=== PATIENT | female | born 1970 | race Caucasian/White ===

== ENCOUNTER → 2018-05-31 | Outpatient (CLI) | payer OTHER | END | disposition home or self-care (01) | LOC: CPPFTMAIN 11:46 | PROVIDERS: ATTEND Family Medicine | DX: R94.2 Abnormal results of pulmonary function studies (principal); R06.02 Shortness of breath | CPT/HCPCS: 94060; 94726; 94729 ==

== ENCOUNTER → 2018-06-23 | Outpatient (CLI) | payer OTHER ==
--- NOTE | 2018-06-23 13:08 | CT ---
EXAMINATION TYPE: CT angio chest DATE OF EXAM: 06/23/2018 COMPARISON: 05/26/2015 HISTORY: 48-year-old female Shortness of breath, cough, bringing up phlegm TECHNIQUE: Contiguous axial scanning of the chest performed with IV Contrast, patient injected with 1 00 mL of Isovue 370. Coronal/sagittal MIP reconstructions performed. CT DLP: 445 mGycm Automated exposure control for dose reduction was used. FINDINGS: Heart normal size without pericardial effusion. Aortic root is ectatic at 3.6 cm. Conventional arch vessel branching anatomy. No thoracic lymphadenopathy. Satisfactory opacification of the pulmonary to systemic without evidence for pulmonary embolus. Mild emphysematous changes noted with minimal biapical pleural-parenchymal scarring. No consolidation or pleural effusion. Bands of atelectasis in the lower lungs. This has a more nodular configuration along the posterior medial left lung base measuring 1.5 cm. Nodular atelectasis is favored and can be reassessed in 3 months. A round, well-defined hypodense lesion lateral aspect of the spleen measures 1.2 cm, too small for ac curate characterization and while new from 2014, probably still represents a cyst. Slight nodular thickening of the left adrenal gland measures 1.1 cm and may be new. Bones: No osseous destructive process. IMPRESSION: 1. NO EVIDENCE FOR PULMONARY EMBOLUS. 2. COPD WITH MILD EMPHYSEMA. 3. BANDS OF ATELECTASIS OR SCARRING AT THE LUNG BASES. THE BAND ALONG THE POSTEROMEDIAL LEFT BASE MALINA WS 1.5 CM OF NODULAR THICKENING FAVORED TO REPRESENT NODULAR ATELECTASIS. RECOMMEND THREE-MONTH FOLLO W-UP TO EXCLUDE UNDERLYING NODULE. 3. A 1.2 CM HYPODENSE LESION WITHIN THE SPLEEN WAS NOT SEEN IN 2014 BUT STILL LIKELY REPRESENTS A CYS T. THERE IS ALSO NEW 1.1 CM NODULARITY IN THE LEFT ADRENAL GLAND. BOTH OF THESE FINDINGS CAN ALSO BE REASSESSED AT THE PATIENT'S CHEST CT FOLLOW-UP.
== END | disposition home or self-care (01) ==
LOC: RADCTMAIN 12:13
PROVIDERS: ATTEND Internal Medicine Critical Care Medicine
DX: J44.9 Chronic obstructive pulmonary disease, unspecified (principal); R91.1 Solitary pulmonary nodule; Z88.5 Allergy status to narcotic agent
CPT/HCPCS: 71275; Q9967

== ENCOUNTER → 2018-08-17 | Outpatient (CLI) | payer OTHER ==
--- NOTE | 2018-08-30 10:12 | MM ---
Reason for exam: additional evaluation requested from prior study. Last mammogram was performed 13 years and 5 months ago. History: Family history of breast cancer. Physical Findings: Nurse Summary:1cm nodule in the right breast at 12 o'clock, 10/ 11 o'clock and a 1cm nodule in the left breast at 12 o'clock (nurse kp). MG Diagnostic Mammo w CAD MAX Bilateral CC and MLO view(s) were taken. Prior study comparison: February 20, 2015, mammogram. September 06, 2014, mammogram. February 19, 2014, mammogram. March 18, 2005, bilateral diagnostic mammogram. The breast tissue is extremely dense which could obscure a lesion on mammography. Finding: There are intermediate concern, suspicious punctate, grouped/clustered calcifications in the upper outer quadrant, middle position of the right breast 3cm from the nipple. These are in region on palpable. There is no discrete abnormality at BB's, grouped calcifications are in the general area. New finding since February 20, 2015. ASSESSMENT: Incomplete: need additional imaging evaluation, BI-RAD 0 RECOMMENDATION: Special view mammogram of the right breast.
--- NOTE | 2018-08-30 10:15 | USB ---
Reason for exam: additional evaluation requested from prior study. History: Family history of breast cancer. US Breast BILAT Right complete breast ultrasound includes all four quadrants, the retroareolar region and axilla. Finding demonstrates a 0.6 x 0.4 x 0.5cm cystic cluster at 7 o'clock for which a short term follow up in 3 months is recommended, a 1.2 x 0.9 x 1.4cm cystic lesion at 10 o'clock that correlates to palpable and a 1.2 x 0.6 x 0.8cm cystic lesion at 10 o'clock. Left complete breast ultrasound includes all four quadrants, the retroareolar region and axilla. Finding demonstrates a 1.5 x 0.8 x 1.2cm cystic lesion at 12 o'clock that correlates with palpable and a 0.9 x 0.8 x 0.9cm cystic cluster at 5 o'clock for which a short term follow up in 3 months is recommended. These results were verbally communicated with the patient and result sheet given to the patient on 08/17/18. ASSESSMENT: Probably benign, BI-RAD 3 RECOMMENDATION: Ultrasound of both breasts in 3 months.
== END | disposition home or self-care (01) ==
LOC: RADMAMWWP 12:58
PROVIDERS: ATTEND Family Medicine
DX: N63.11 Unspecified lump in the right breast, upper outer quadrant (principal); N63.21 Unspecified lump in the left breast, upper outer quadrant
CPT/HCPCS: 77066

== ENCOUNTER → 2018-09-26 | Outpatient (CLI) | payer OTHER ==
--- NOTE | 2018-09-27 08:30 | CT ---
EXAMINATION TYPE: CT chest w con DATE OF EXAM: 09/26/2018 COMPARISON: CT angiogram chest 06/23/2018 HISTORY: single pulmonary nodule CT DLP: 243.20 mGycm Automated exposure control for dose reduction was used. CONTRAST: CT scan of the chest is performed with IV Contrast, patient injected with 100 mL of Isovue 300. FINDINGS: LUNGS: The lungs are grossly clear, there is no concerning parenchymal mass or nodule identified. [place] parenchymal scar left lung base posteriorly. There is no pleural effusion or pneumothorax seen. The tracheobronchial tree is patent. MEDIASTINUM: There are no greater than 1 cm hilar or mediastinal lymph nodes. No pericardial effusi on is seen. Thoracic aorta is of normal caliber. The heart is not enlarged. UPPER ABDOMEN: Right adrenal glandular thickening is noted. OTHER: No additional significant abnormality is seen. IMPRESSION: 1. No evidence for concerning pulmonary nodule or mass. Linear parenchymal scar posteriorly left lung base. No focal consolidation identified. 2. Right adrenal glandular hyperplasia.
== END | disposition home or self-care (01) ==
LOC: RADCTMAIN 15:29
PROVIDERS: ATTEND Nurse Practitioner Family
DX: J98.4 Other disorders of lung (principal); E27.8 Other specified disorders of adrenal gland
CPT/HCPCS: 71260; Q9967

== ENCOUNTER → 2018-12-08 | Outpatient (CLI) | payer OTHER ==
--- NOTE | 2018-12-09 08:50 | MM ---
Reason for exam: follow-up at short interval from prior study. Last mammogram was performed 4 months ago. History: Family history of breast cancer in sister at age 48. Physical Findings: Nurse Summary: 0.5-1.5cm nodules throughout right and left breast (nurse kp). MG Work Up Mamm w CAD RT CC and MLO view(s) were taken of the right breast. Prior study comparison: August 17, 2018, bilateral MG diagnostic mammo w CAD MAX. February 20, 2015, mammogram. The breast tissue is extremely dense which could obscure a lesion on mammography. There are benign appearing scattered right calcifications most of which layer and are consistent with milk of calcium. There is also a 3mm group of lower outer quadrant calcifications at middle depth, questionably present on the prior exam of 2014. These are rounded in morphology. 6 month follow up recommended for this group only. These results were verbally communicated with the patient and result sheet given to the patient on 12/08/18. ASSESSMENT: Probably benign, BI-RAD 3 RECOMMENDATION: Follow-up diagnostic mammogram of the right breast in 6 months.
== END | disposition home or self-care (01) ==
LOC: RADMAMWWP 15:03
PROVIDERS: ATTEND Family Medicine
DX: R92.8 Other abnormal and inconclusive findings on diagnostic imaging of breast (principal)
CPT/HCPCS: 77065

== ENCOUNTER → 2018-12-08 | Outpatient (CLI) | payer OTHER ==
--- NOTE | 2018-12-09 08:54 | USB ---
Reason for exam: follow-up at short interval from prior study. History: Family history of breast cancer in sister at age 48. US Breast BILAT Right complete breast ultrasound includes all four quadrants, the retroareolar region and axilla. Finding demonstrates several cystic lesions measuring 0.8 x 0.4 x 0.9cm at 12 o'clock, 1.2 x 0.5 x 0.8cm at 12 o'clock, 0.5 x 0.3 x 0.7cm at 7 o'clock and 1.4 x 0.9 x 1.4cm at 11 o'clock. Left complete breast ultrasound includes all four quadrants, the retroareolar region and axilla. Finding demonstrates several cystic lesion measuring 1.0 x 0.4 x 0.6cm at 12 o'clock, 0.6 x 0.5 x 0.6cm at 4 o'clock, 0.7cm at 9 o'clock and 1.0 x 0.5 x 0.7cm at 11 o'clock. These results were verbally communicated with the patient and result sheet given to the patient on 12/08/18. ASSESSMENT: Benign, BI-RAD 2 RECOMMENDATION: Follow-up diagnostic mammogram of the right breast in 6 months.
== END | disposition home or self-care (01) ==
LOC: RADUSWWP 15:06
PROVIDERS: ATTEND Family Medicine
DX: R92.8 Other abnormal and inconclusive findings on diagnostic imaging of breast (principal)

== ENCOUNTER 2019-01-11 10:20 | Day surgery (SDC) | payer OTHER ==
[2019-01-10 11:11] VITALS: BMI 24.9
[~2019-01-11 10:20] MED LIST: LACTATED RINGERS 1,000 ML IV SCH; LIDOCAINE 1% 20 ML VIAL (10MG/ML) FOR IV START INTRADERMA PRN
[2019-01-11] MEDS ORDERED: LACTATED RINGERS 1,000 ML IV ONE ×2 (10:32)
[2019-01-11 10:36] VITALS: TEMP 97.8
[2019-01-11] MEDS ORDERED: LIDOCAINE 1% 20 ML VIAL (10MG/ML) FOR IV START INTRADERMA ONE (10:43)
[2019-01-11] MEDS ORDERED: LIDOCAINE 1% INJ 10MG/ML (20 ML MDV) ONE (10:50)
[2019-01-11] MEDS ORDERED: PROPOFOL 10 MG/ML 20 ML VIAL IV ONE (10:50)
--- NOTE | 2019-01-11 10:56 | P.GSHP ---
History of Present Illness H&P Date: 01/11/19 Chief Complaint: Colon cancer screening Patient is here today for colonoscopy. Mother with history of rectal cancer in her 50s. No bowel related complaints. No previous endoscopy. Past Medical History Past Medical History: Blood Disorder, COPD, CVA/TIA, Hypertension Additional Past Medical History / Comment(s): Factor 5 blood disorder. TIA X2. HAS OLD INJURIES FROM FALL OUT OF TRUCK BED, USES CANE. HAS CURRENT "CHEST COLD" SX, COUGH - INSTRUCTED PATIENT TO CALL AND NOTIFY DR HARDEN OF SX [place]. History of Any Multi-Drug Resistant Organisms: None Reported Past Surgical History: Tubal Ligation Additional Past Surgical History / Comment(s): ORIF RT LEG. D&C. EXC OVARIAN CYST. Past Anesthesia/Blood Transfusion Reactions: Postoperative Nausea & Vomiting (PONV) Smoking Status: Current every day smoker - Past Family History Mother Family Medical History: Cancer Additional Family Medical History / Comment(s): RECTAL CA Brother(s) Family Medical History: Deep Vein Thrombosis (DVT) Medications and Allergies Home Medications Medication Instructions Recorded Confirmed Type Metoprolol Succinate (ER) [Toprol 50 mg PO QAM 05/26/15 01/10/19 History Xl] Acetaminophen with Codeine 1 tab PO BID 09/30/18 01/10/19 History [Tylenol w/codeine #4] Albuterol Inhaler [Ventolin Hfa 1 - 2 puff INHALATION Q4HR PRN 09/30/18 01/10/19 History Inhaler] FLUoxetine HCL [PROzac] 40 mg PO QAM 09/30/18 01/10/19 History Fluticasone/Salmeterol 1 puff INHALATION BID 09/30/18 01/10/19 History [Fluticasone-Salmeterol 232-14] Montelukast Sodium [Singulair] 10 mg PO QAM 09/30/18 01/10/19 History Rivaroxaban [Xarelto] 20 mg PO DAILY 09/30/18 01/10/19 History Biotin 5,000 mcg PO DAILY 01/10/19 01/10/19 History Allergies Allergy/AdvReac Type Severity Reaction Status Date / Time hydrocodone AdvReac "OUT OF IT Verified 01/10/19 10:51 FOR SEVERAL DAYS" Surgical - Exam Vital Signs Temp Pulse Resp BP Pulse Ox 97.8 F 78 18 115/74 98 01/11/19 10:36 01/11/19 10:36 01/11/19 10:36 01/11/19 10:36 01/11/19 10:36 Physical exam: General: Well-developed, well-nourished HEENT: Normocephalic, sclerae nonicteric Abdomen: Nontender, nondistended Extremities: No edema Neuro: Alert and oriented Assessment and Plan (1) Colon cancer screening Narrative/Plan: Will proceed with colonoscopy Current Visit: Yes Status: Acute Code(s): Z12.11 - ENCOUNTER FOR SCREENING FOR MALIGNANT NEOPLASM OF COLON SNOMED Code(s): 329099872
--- NOTE | 2019-01-11 11:08 | P.PCN ---
Date of Procedure: 01/11/19 Procedure(s) Performed: PREOPERATIVE DIAGNOSIS: Colon cancer screening, family history POSTOPERATIVE DIAGNOSIS: Normal exam PROCEDURE: Colonoscopy ANESTHESIA: MAC SURGEON: Sheng Cha M.D. SPECIMENS: None ENDOSCOPIC PROCEDURE: The patient was placed on the endoscopy table in the left decubitus position. The Olympus colonoscope was inserted into the anus and passed under direct visualization to the base of the cecum. The appendiceal orifice was visualized. From that point the scope was slowly withdrawn inspecting all surfaces carefully. There were no neoplastic inflammatory or polypoid lesions throughout the cecum, ascending, transverse, descending, sigmoid and rectum. There was no visible diverticulosis noted. Digital rectal examination was normal. The patient was taken to the recovery room in stable condition per anesthesia guidelines. RECOMMENDATIONS: Resume diet. Follow-up colonoscopy 5 years.
[2019-01-11 11:47] VITALS: BP 119/82; PULSE 64; RESP 16
== END 2019-01-11 11:55 | disposition home or self-care (01) ==
LOC: ORWHC2ENDO 10:20
PROVIDERS: ATTEND Surgery
DX: Z12.11 Encounter for screening for malignant neoplasm of colon (principal); I10 Essential (primary) hypertension; F17.200 Nicotine dependence, unspecified, uncomplicated; J44.9 Chronic obstructive pulmonary disease, unspecified; D68.2 Hereditary deficiency of other clotting factors; Z86.73 Personal history of transient ischemic attack (TIA), and cerebral infarction without residual deficits; Z79.899 Other long term (current) drug therapy; Z79.01 Long term (current) use of anticoagulants; Z80.0 Family history of malignant neoplasm of digestive organs; Z88.5 Allergy status to narcotic agent; Z79.51 Long term (current) use of inhaled steroids
CPT/HCPCS: 81025; J2001; J2704; G0105

== ENCOUNTER 2019-03-07 13:37 | Emergency (ER) | payer OTHER ==
--- NOTE | 2019-03-07 15:16 | ED ---
Head Injury HPI - General Chief complaint: Head Injury Stated complaint: head injury, on blood thinners Time Seen by Provider: 03/07/19 14:39 Source: patient, RN notes reviewed Mode of arrival: ambulatory Limitations: no limitations - History of Present Illness Initial comments: 49-year-old female sent emergency Department with chief complaint of head i njury. Patient states she has done. States that her head. Patient states she's had a headache ever since her no loss conscious. Patient is on Xarelto chronically for clotting disorder. Patient called PCP who recommended come emergency for a CAT scan. Patient's had some nausea no blurred vision she does have some light sensitivity. No Focal weakness no dizziness no difficulty walking. - Related Data Home Medications Medication Instructions Recorded Confirmed Metoprolol Succinate (ER) [Toprol 50 mg PO QAM 05/26/15 03/07/19 Xl] Albuterol Inhaler [Ventolin Hfa 1 - 2 puff INHALATION RT-Q4H PRN 09/30/18 03/07/19 Inhaler] FLUoxetine HCL [PROzac] 40 mg PO QAM 09/30/18 03/07/19 Fluticasone/Salmeterol 1 puff INHALATION RT-BID 09/30/18 03/07/19 [Fluticasone-Salmeterol 232-14] Montelukast Sodium [Singulair] 10 mg PO QAM 09/30/18 03/07/19 Rivaroxaban [Xarelto] 20 mg PO DAILY 09/30/18 03/07/19 Allergies/Adverse reactions: Allergies Allergy/AdvReac Type Severity Reaction Status Date / Time hydrocodone AdvReac "OUT OF IT Verified 03/07/19 15:20 FOR SEVERAL DAYS" Review of Systems ROS Statement: Those systems with pertinent positive or pertinent negative responses have been documented in the HPI. ROS Other: All systems not noted in ROS Statement are negative. 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 History of Any Multi-Drug Resistant Organisms: None Reported Past Surgical History: Tubal Ligation Past Psychological History: No Psychological Hx Reported Smoking Status: Current every day smoker Past Alcohol Use History: Occasional Past Drug Use History: None Reported General Exam Limitations: no limitations General appearance: alert, in no apparent distress Head exam: Present: atraumatic, normocephalic, normal inspection Eye exam: Present: normal appearance, PERRL, EOMI. Absent: scleral icterus, conjunctival injection, periorbital swelling ENT exam: Present: normal exam, normal oropharynx, mucous membranes moist, TM's normal bilaterally Neck exam: Present: normal inspection, full ROM. Absent: tenderness, meningismus, lymphadenopathy Respiratory exam: Present: normal lung sounds bilaterally. Absent: respiratory distress, wheezes, rales, rhonchi, stridor Cardiovascular Exam: Present: regular rate, normal rhythm, normal heart sounds. Absent: systolic murmur, diastolic murmur, rubs, gallop, clicks GI/Abdominal exam: Present: soft, normal bowel sounds. Absent: distended, tenderness, guarding, rebound, rigid Neurological exam: Present: alert, oriented X3, CN II-XII intact, normal gait, reflexes normal. Absent: motor sensory deficit Skin exam: Present: warm, dry, intact, normal color. Absent: rash Course Vital Signs 03/07/19 13:54 Temperature 98.2 F Pulse Rate 84 Respiratory 16 Rate Blood Pressure 119/76 O2 Sat by Pulse 97 Oximetry Medical Decision Making - Medical Decision Making 41-year-old female presents emergency from chief complaint of head injury. Patient was sent here secondary to being on Xarelto CT is obtained no acute abnormality. We did discuss delayed bleed. Return parameters were discussed. Disposition Clinical Impression: Head injury Disposition: HOME SELF-CARE Condition: Stable Instructions (If sedation given, give patient instructions): Head Injury (ED) Additional Instructions: Please return to the Emergency Department if symptoms worsen or any other concerns. Is patient prescribed a controlled substance at d/c from ED?: No Referrals: Grceia Paulino III, MD [Primary Care Provider] - 1-2 days Time of Disposition: 15:50
--- NOTE | 2019-03-07 15:40 | CT ---
EXAMINATION TYPE: CT brain wo con DATE OF EXAM: 03/07/2019 COMPARISON: Prior head CT dated 05/26/2015 HISTORY: Left frontal head injury yesterday. Patient on blood thinners. CT DLP: 1052.4 mGycm. Automated Exposure Control for Dose Reduction was Utilized. PET CT performed u sing departmental protocol. TECHNIQUE: CT scan of the head is performed without contrast. FINDINGS: Hypodense area in the left frontal lobe is a stable finding and compatible with encephalom alacia possibly due to remote vascular insult. There is no acute intracranial hemorrhage, mass effect , or midline shift identified. The ventricles and sulci are within normal limits in size. The globe s are intact and the visualized sinuses are remarkable for inflammatory change in the sphenoid sinus on the left. No depressed skull fracture present. 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 IMPRESSION: No acute intracranial hemorrhage, mass effect, or midline shift is seen.
[2019-03-07 16:04] VITALS: BP 126/87; PULSE 80; RESP 18; TEMP 98
== END 2019-03-07 16:04 | disposition home or self-care (01) ==
LOC: EC 13:37
DX: S09.90XA Unspecified injury of head, initial encounter (principal); I10 Essential (primary) hypertension; D68.51 Activated protein C resistance; F17.200 Nicotine dependence, unspecified, uncomplicated; Z88.5 Allergy status to narcotic agent; Z79.01 Long term (current) use of anticoagulants; Z79.51 Long term (current) use of inhaled steroids; Z79.899 Other long term (current) drug therapy; Z86.73 Personal history of transient ischemic attack (TIA), and cerebral infarction without residual deficits; W22.8XXA Striking against or struck by other objects, initial encounter
CPT/HCPCS: 70450; 99283

== ENCOUNTER 2019-07-13 04:44 | Emergency (ER) | payer OTHER ==
[2019-07-13 04:50] VITALS: RESP 18
[2019-07-13] MEDS ORDERED: SODIUM CHLORIDE 0.9% 1,000 ML IV STA (04:58)
[2019-07-13 05:07] LABS: Basophils # (A) 0.1 k/uL (0-0.2); Basophils % (A) 1 %; Eosinophils # (A) 0.2 k/uL (0-0.7); Eosinophils % (A) 1 %; HCT 44.4 % (34.0-46.0); HGB 14.8 gm/dL (11.4-16.0); Lymphocytes # (A) 2.5 k/uL (1.0-4.8); Lymphocytes % (A) 24 %; MCH 32.2 pg (25.0-35.0); MCHC 33.2 g/dL (31.0-37.0); MCV 96.8 fL (80.0-100.0); Mean Platelet Volume 7.5; Monocytes # (A) 0.7 k/uL (0-1.0); Monocytes % (A) 6 %; Neutrophils # (A) 6.8 k/uL (1.3-7.7); Neutrophils % (A) 65 %; Platelet Count 343 k/uL (150-450); RBC 4.59 m/uL (3.80-5.40); WBC 10.5 k/uL (3.8-10.6)
--- NOTE | 2019-07-13 05:09 | ED ---
Neuro HPI - General Chief Complaint: Neuro Symptoms/Deficit Stated Complaint: stroke like symptoms Time Seen by Provider: 07/13/19 04:52 Source: family Limitations: physical limitation - History of Present Illness Is the patient presenting with stroke symptoms?: Yes -: unknown Initial Comments: 's patient is a 49-year-old woman brought to be evaluated for possible stroke. History is from patient's family members who state that she is not appear able to speak this morning. She had been speaking fine prior to going to bed. Family members also state that she seems to be having a hard time understanding when they communicate with her. Patient has history of previous TIA and previous stroke. No head injury. Patient not able to give much history due to what appears to be expressive aphasia. Location: speech History of same: No Place: home Severity: severe Improves With: none Worsens With: none Associated Symptoms: confusion - Related Data Home Medications: Home Medications Medication Instructions Recorded Confirmed Metoprolol Succinate (ER) [Toprol 50 mg PO QAM 05/26/15 03/07/19 Xl] Albuterol Inhaler [Ventolin Hfa 1 - 2 puff INHALATION RT-Q4H PRN 09/30/18 03/07/19 Inhaler] FLUoxetine HCL [PROzac] 40 mg PO QAM 09/30/18 03/07/19 Fluticasone/Salmeterol 1 puff INHALATION RT-BID 09/30/18 03/07/19 [Fluticasone-Salmeterol 232-14] Montelukast Sodium [Singulair] 10 mg PO QAM 09/30/18 03/07/19 Rivaroxaban [Xarelto] 20 mg PO DAILY 09/30/18 03/07/19 Allergies/Adverse Reactions: Allergies Allergy/AdvReac Type Severity Reaction Status Date / Time hydrocodone AdvReac "OUT OF IT Verified 07/13/19 04:50 FOR SEVERAL DAYS" Review of Systems ROS Statement: Those systems with pertinent positive or pertinent negative responses have been documented in the HPI. ROS Other: All systems not noted in ROS Statement are negative. Limitations: ROS unobtainable due to patients medical condition (This patient is currently) Respiratory: Denies: dyspnea Cardiovascular: Denies: chest pain Gastrointestinal: Denies: abdominal pain, vomiting Musculoskeletal: Denies: back pain Neurological: Denies: headache General Exam Limitations: physical limitation General appearance: alert, in no apparent distress Head exam: Present: atraumatic, normocephalic Eye exam: Present: normal appearance, PERRL, EOMI, nystagmus. Absent: scleral icterus, conjunctival injection ENT exam: Present: mucous membranes dry Neck exam: Present: normal inspection, full ROM. Absent: tenderness, meningismus Respiratory exam: Present: normal lung sounds bilaterally. Absent: respiratory distress, wheezes, rales, rhonchi, stridor Cardiovascular Exam: Present: normal rhythm, tachycardia, normal heart sounds. Absent: systolic murmur, diastolic murmur, rubs, gallop GI/Abdominal exam: Present: soft. Absent: distended, tenderness, guarding, rebound Extremities exam: Present: normal inspection, normal capillary refill. Absent: pedal edema, calf tenderness Back exam: Present: normal inspection. Absent: CVA tenderness (R), CVA tenderness (L) Neurological exam: Present: alert, CN II-XII intact. Absent: motor sensory deficit Expanded Neurological exam: Present: expressive aphasia, protecting the airway Patient oriented to: Present: person, place. Absent: time Speech: Present: expressive aphasia Cranial nerves: EOM's Intact: Normal, Gag Reflex: Normal, Tongue Deviation: Normal, Facial Sensation: Normal Motor strength exam: RUE: 5, LUE: 5, RLE: 5, LLE: 5 Eye Response: (4) open spontaneously Motor Response: (6) obeys commands Verbal Response: (4) confused conversation Skin exam: Present: warm, dry, intact, normal color. Absent: rash Stroke MDM - Lab Data Result diagrams: 07/13/19 04:58 07/13/19 04:58 Lab Results 07/13/19 07/13/19 07/13/19 Range/Units 04:58 04:58 04:58 WBC 10.5 (3.8-10.6) k/uL RBC 4.59 (3.80-5.40) m/uL Hgb 14.8 (11.4-16.0) gm/dL Hct 44.4 (34.0-46.0) % MCV 96.8 (80.0-100.0) fL MCH 32.2 (25.0-35.0) pg MCHC 33.2 (31.0-37.0) g/dL RDW 15.0 (11.5-15.5) % Plt Count 343 (150-450) k/uL Neutrophils % 65 % Lymphocytes % 24 % Monocytes % 6 % Eosinophils % 1 % Basophils % 1 % Neutrophils # 6.8 (1.3-7.7) k/uL Lymphocytes # 2.5 (1.0-4.8) k/uL Monocytes # 0.7 (0-1.0) k/uL Eosinophils # 0.2 (0-0.7) k/uL Basophils # 0.1 (0-0.2) k/uL PT 9.6 (9.0-12.0) sec INR 0.9 (<1.2) APTT 27.9 (22.0-30.0) sec Sodium 142 (137-145) mmol/L Potassium 4.0 (3.5-5.1) mmol/L Chloride 108 H (98-107) mmol/L Carbon Dioxide 20 L (22-30) mmol/L Anion Gap 14 mmol/L BUN 7 (7-17) mg/dL Creatinine 0.51 L (0.52-1.04) mg/dL Est GFR (CKD-EPI)AfAm >90 (>60 ml/min/1.73 sqM) Est GFR (CKD-EPI)NonAf >90 (>60 ml/min/1.73 sqM) Glucose 113 H (74-99) mg/dL Calcium 9.9 (8.4-10.2) mg/dL Total Bilirubin 0.2 (0.2-1.3) mg/dL AST 21 (14-36) U/L ALT 14 (9-52) U/L Alkaline Phosphatase 53 (38-126) U/L Troponin I (0.000-0.034) ng/mL Total Protein 8.1 (6.3-8.2) g/dL Albumin 4.8 (3.5-5.0) g/dL Urine Color Urine Appearance (Clear) Urine pH (5.0-8.0) Ur Specific [place] (1.001-1.035) Urine Protein (Negative) Urine Glucose (UA) (Negative) Urine Ketones (Negative) Urine Blood (Negative) Urine Nitrite (Negative) Urine Bilirubin (Negative) Urine Urobilinogen (<2.0) mg/dL Ur Leukocyte Esterase (Negative) Urine Opiates Screen (NotDetected) Ur Oxycodone Screen (NotDetected) Urine Methadone Screen (NotDetected) Ur Propoxyphene Screen (NotDetected) Ur Barbiturates Screen (NotDetected) U Tricyclic Antidepress (NotDetected) Ur Phencyclidine Scrn (NotDetected) Ur Amphetamines Screen (NotDetected) U Methamphetamines Scrn (NotDetected) U Benzodiazepines Scrn (NotDetected) Urine Cocaine Screen (NotDetected) U Marijuana (THC) Screen (NotDetected) Serum Alcohol 276 H* mg/dL 07/13/19 07/13/19 Range/Units 04:58 05:30 WBC (3.8-10.6) k/uL RBC (3.80-5.40) m/uL Hgb (11.4-16.0) gm/dL Hct (34.0-46.0) % MCV (80.0-100.0) fL MCH (25.0-35.0) pg MCHC (31.0-37.0) g/dL RDW (11.5-15.5) % Plt Count (150-450) k/uL Neutrophils % % Lymphocytes % % Monocytes % % Eosinophils % % Basophils % % Neutrophils # (1.3-7.7) k/uL Lymphocytes # (1.0-4.8) k/uL Monocytes # (0-1.0) k/uL Eosinophils # (0-0.7) k/uL Basophils # (0-0.2) k/uL PT (9.0-12.0) sec INR (<1.2) APTT (22.0-30.0) sec Sodium (137-145) mmol/L Potassium (3.5-5.1) mmol/L Chloride (98-107) mmol/L Carbon Dioxide (22-30) mmol/L Anion Gap mmol/L BUN (7-17) mg/dL Creatinine (0.52-1.04) mg/dL Est GFR (CKD-EPI)AfAm (>60 ml/min/1.73 sqM) Est GFR (CKD-EPI)NonAf (>60 ml/min/1.73 sqM) Glucose (74-99) mg/dL Calcium (8.4-10.2) mg/dL Total Bilirubin (0.2-1.3) mg/dL AST (14-36) U/L ALT (9-52) U/L Alkaline Phosphatase (38-126) U/L Troponin I <0.012 (0.000-0.034) ng/mL Total Protein (6.3-8.2) g/dL Albumin (3.5-5.0) g/dL Urine Color Colorless Urine Appearance Clear (Clear) Urine pH 6.5 (5.0-8.0) Ur Specific [place] 1.006 (1.001-1.035) Urine Protein Negative (Negative) Urine Glucose (UA) Negative (Negative) Urine Ketones Negative (Negative) Urine Blood Negative (Negative) Urine Nitrite Negative (Negative) Urine Bilirubin Negative (Negative) Urine Urobilinogen <2.0 (<2.0) mg/dL Ur Leukocyte Esterase Negative (Negative) Urine Opiates Screen Not Detected (NotDetected) Ur Oxycodone Screen Not Detected (NotDetected) Urine Methadone Screen Not Detected (NotDetected) Ur Propoxyphene Screen Not Detected (NotDetected) Ur Barbiturates Screen Not Detected (NotDetected) U Tricyclic Antidepress Not Detected (NotDetected) Ur Phencyclidine Scrn Not Detected (NotDetected) Ur Amphetamines Screen Not Detected (NotDetected) U Methamphetamines Scrn Not Detected (NotDetected) U Benzodiazepines Scrn Not Detected (NotDetected) Urine Cocaine Screen Not Detected (NotDetected) U Marijuana (THC) Screen Not Detected (NotDetected) Serum Alcohol mg/dL - Medical Decision Making Patient's 49-year-old woman with some aphasia found to have significantly elevated alcohol level. The patient workup negative for acute stroke. I was called by nursing staff while evaluating another patient and they stated the patient was wanting to leave [facility] [facility], and supported by family members. 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 History of Any Multi-Drug Resistant Organisms: None Reported Past Surgical History: Tubal Ligation Past Psychological History: No Psychological Hx Reported Smoking Status: Current every day smoker Past Alcohol Use History: Occasional Past Drug Use History: None Reported Course Vital Signs 07/13/19 07/13/19 04:48 06:30 Temperature 97.6 F 97.9 F Pulse Rate 105 H 68 Respiratory 18 18 Rate Blood Pressure 127/82 122/76 O2 Sat by Pulse 96 98 Oximetry Disposition Clinical Impression: Alcohol intoxication, Aphasia Disposition: HOME SELF-CARE Instructions (If sedation given, give patient instructions): Alcohol Intoxication (ED) Is patient prescribed a controlled substance at d/c from ED?: No Referrals: Grecia Paulino III, MD [Primary Care Provider] - 1-2 days
[2019-07-13 05:18] LABS: INR 0.9 (<1.2); Partial Thromboplastin Time 27.9 sec (22.0-30.0); Prothrombin Time 9.6 sec (9.0-12.0)
[2019-07-13 05:20] LABS: ALT 14 U/L (9-52); AST 21 U/L (14-36); African American GFR (CKD) >90 (>60 ml/min/1.73 sqM); Albumin 4.8 g/dL (3.5-5.0); Alkaline Phosphatase 53 U/L (38-126); Anion Gap 14 mmol/L; Blood Urea Nitrogen 7 mg/dL (7-17); Calcium 9.9 mg/dL (8.4-10.2); Carbon Dioxide 20 mmol/L (22-30); Chloride 108 mmol/L (98-107); Glucose 113 mg/dL (74-99); Sodium 142 mmol/L (137-145); Total Bilirubin 0.2 mg/dL (0.2-1.3); Total Protein 8.1 g/dL (6.3-8.2)
[2019-07-13 05:24] LABS: Alcohol 276 mg/dL
--- NOTE | 2019-07-13 05:31 | CT ---
EXAM: CT Head Without Intravenous Contrast CLINICAL HISTORY: Neuro Deficits TECHNIQUE: Axial computed tomography images of the head/brain without intravenous contrast. DLP is 1412.4 mGy-cm. This CT exam was performed using one or more of the following dose reduction techniques: automated exposure control, adjustment of the mA and/or kV according to patient size, and/or use of iterative reconstruction technique. COMPARISON: 03/07/2019. FINDINGS: Brain: Encephalomalacia involving the left frontal lobe, likely from prior infarct, as seen on prior study. There is no evidence of an acute transcortical infarct or acute intracranial hemorrhage. No significant white matter disease. Ventricles: Unremarkable. No ventriculomegaly. Bones/joints: Unremarkable. No acute fracture. Soft tissues: Unremarkable. Sinuses: Tiny air-fluid level seen within the right sphenoid sinus. Mastoid air cells: Unremarkable as visualized. No mastoid effusion. IMPRESSION: No evidence of acute intracranial pathology without significant interval change, as above.
--- NOTE | 2019-07-13 05:34 | CT ---
EXAM: CT Angiography Head With Intravenous Contrast CLINICAL HISTORY: ITS.REASON CT Reason: Neuro Deficits TECHNIQUE: Axial computed tomographic angiography images of the head with intravenous contrast. CTDI is 8 mGy and DLP is 293 mGy-cm. This CT exam was performed using one or more of the following dose reduction techniques: automated exposure control, adjustment of the mA and/or kV according to patient size, and/or use of iterative reconstruction technique. MIP reconstructed images were created and reviewed. COMPARISON: 07/13/19 CT head FINDINGS: Right internal carotid artery: Intracranial segment is patent with no significant stenosis. No aneurysm. Right anterior cerebral artery: No occlusion or significant stenosis. No aneurysm. Right middle cerebral artery: No occlusion or significant stenosis. No aneurysm. Right posterior cerebral artery: No occlusion or significant stenosis. No aneurysm. Right vertebral artery: Unremarkable. Left internal carotid artery: Intracranial segment is patent with no significant stenosis. No aneurysm. Left anterior cerebral artery: No occlusion or significant stenosis. No aneurysm. Left middle cerebral artery: No occlusion or significant stenosis. No aneurysm. Left posterior cerebral artery: No occlusion or significant stenosis. No aneurysm. Left vertebral artery: Unremarkable. Basilar artery: No occlusion or significant stenosis. No aneurysm. IMPRESSION: No significant stenosis. EXAM: CT Angiography Neck With Intravenous Contrast CLINICAL HISTORY: ITS.REASON CT Reason: Neuro Deficits TECHNIQUE: Axial computed tomographic angiography images of the neck with intravenous contrast. CTDI is 8 mGy and DLP is 293 mGy-cm. This CT exam was performed using one or more of the following dose reduction techniques: automated exposure control, adjustment of the mA and/or kV according to patient size, and/or use of iterative reconstruction technique. MIP reconstructed images were created and reviewed. COMPARISON: No relevant prior studies available. FINDINGS: VASCULATURE: Right common carotid artery: No significant stenosis. No dissection or occlusion. Right internal carotid artery: Extracranial segment is patent with no significant stenosis. No dissection or occlusion. Right vertebral artery: No significant stenosis. No dissection or occlusion. Left common carotid artery: No significant stenosis. No dissection or occlusion. Left internal carotid artery: Extracranial segment is patent with no significant stenosis. No dissection or occlusion. Left vertebral artery: No significant stenosis. No dissection or occlusion. Possible occlusion in the very distal vessels around the left frontal lobe infarct. NECK: Bones/joints: No acute fracture. No dislocation. Soft tissues: No mass. CAROTID STENOSIS REFERENCE USING NASCET CRITERIA: % ICA stenosis = (1 - narrowest ICA diameter/diameter of distal cervical ICA) x 100. Mild - <50% stenosis. Moderate - 50-69% stenosis. Severe - 70-94% stenosis. Near occlusion - 95-99% stenosis. Occluded - 100% stenosis. IMPRESSION: No significant stenosis major vessels. Possible occlusion in the very distal vessels around the left frontal lobe infarct.
--- NOTE | 2019-07-13 05:35 | XR ---
EXAM: XR Chest, 2 Views CLINICAL HISTORY: altered mental status TECHNIQUE: Frontal and lateral views of the chest. COMPARISON: 06/02/2016. FINDINGS: Lungs: Left basilar atelectasis and/or infiltrates, more conspicuous on this study than the prior. Pleural space: Unremarkable. No pneumothorax. Heart: The heart is at upper limits of normal/mildly enlarged, new since prior study. Mediastinum: Unremarkable. Bones/joints: Unremarkable. IMPRESSION: 1. The heart is at upper limits of normal/mildly enlarged, new since prior study. 2. Left basilar atelectasis and/or infiltrates, more conspicuous on this study than the prior.
[2019-07-13 06:29] LABS: Appearance,Urine Clear (Clear); Bilirubin,Urine Negative (Negative); Blood,Urine Negative (Negative); Color,Urine Colorless; Glucose,Urine (UA) Negative (Negative); Ketones,Urine Negative (Negative); Leukocyte Esterase,Urine Negative (Negative); Nitrite,Urine Negative (Negative); PH, Urine 6.5 (5.0-8.0); Protein,Urine Negative (Negative); Specific Gravity,Urine 1.006 (1.001-1.035); Urobilinogen,Urine <2.0 mg/dL (<2.0)
[2019-07-13 06:32] VITALS: BP 122/76; PULSE 68; TEMP 97.9
[2019-07-13 06:41] LABS: Amphetamine Screen,Urine Not Detected (NotDetected); Barbiturate Screen,Urine Not Detected (NotDetected); Benzodiazepines Screen,Urine Not Detected (NotDetected); Cocaine Screen,Urine Not Detected (NotDetected); Methadone Screen, Urine Not Detected (NotDetected); Opiate Screen,Urine Not Detected (NotDetected); Oxycodone Screen, Urine Not Detected (NotDetected); Phencyclidine Screen,Urine Not Detected (NotDetected); Tricyclic Antidepressant,Urine Not Detected (NotDetected); Urn Cannabinoid Scrn Not Detected (NotDetected)
== END 2019-07-13 06:33 | disposition home or self-care (01) ==
LOC: EC 04:44
DX: F10.129 Alcohol abuse with intoxication, unspecified (principal); R47.01 Aphasia; F17.200 Nicotine dependence, unspecified, uncomplicated; I10 Essential (primary) hypertension; Z79.01 Long term (current) use of anticoagulants; Z79.899 Other long term (current) drug therapy; Z88.5 Allergy status to narcotic agent; Z86.73 Personal history of transient ischemic attack (TIA), and cerebral infarction without residual deficits
CPT/HCPCS: 99285 ×2; 96360 ×2; 36415; 93005; 80053; 84484; 85025; 85610; 85730; 81003; 80306; 71046; 70496; 70450; 70498; G0480; Q9967; 80320

== ENCOUNTER 2019-11-07 22:10 | Inpatient (IN) | payer OTHER ==
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
[2019-11-07] MEDS ORDERED: NICOTINE 14MG/24HR PATCH TRANSDERM STA (23:15)
[2019-11-08 00:38] LABS: Amphetamine Screen,Urine Not Detected (NotDetected); Barbiturate Screen,Urine Not Detected (NotDetected); Benzodiazepines Screen,Urine Not Detected (NotDetected); Cocaine Screen,Urine Not Detected (NotDetected); Methadone Screen, Urine Not Detected (NotDetected); Opiate Screen,Urine Not Detected (NotDetected); Oxycodone Screen, Urine Not Detected (NotDetected); Phencyclidine Screen,Urine Not Detected (NotDetected); Tricyclic Antidepressant,Urine Not Detected (NotDetected); Urn Cannabinoid Scrn Not Detected (NotDetected)
[2019-11-08] MEDS ORDERED: ZIPRASIDONE 20 MG VIAL IM PRN (07:25)
[2019-11-08] MEDS ORDERED: MAG HYDROX/AL HYDROX/SIMETH 30 ML CUP PO PRN (07:25)
[2019-11-08] MEDS ORDERED: LORazepam 1 MG TAB PO PRN ×2 (07:25→10:13)
[2019-11-08] MEDS ORDERED: MAGNESIUM HYDROXIDE 2,400 MG/10 ML CUP PO PRN (07:25)
[2019-11-08] MEDS: MONTELUKAST 10 MG TAB PO SCH ×2 (09:27→21:44)
[2019-11-08] MEDS: METOPROLOL SUCCINATE (ER) 50 MG TAB.ER.24H PO SCH (09:30)
[2019-11-08] MEDS: GABAPENTIN 300 MG CAP PO SCH ×3 (09:30→21:44)
[2019-11-08] MEDS: FLUoxetine HCL 20 MG CAP PO SCH (09:30)
[2019-11-08] MEDS: NICOTINE 14MG/24HR PATCH TRANSDERM SCH (09:30)
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
--- NOTE | 2019-11-08 14:18 | P.CONS ---
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 Anxiety and depression. She was admitted to the mental health unit with a diagnosis of severe depression with psychotic symptoms. Also she states she drinks alcohol about 10 beers and 2 cups of whisky about 3-4 days a week. Medical consult has been called for medical management. However patient denies symptoms, she denies headache, no chest pain, no dyspnea, no abdominal pain, nausea vomiting, no change in urine or bowel habits, no fever. She is walking with no difficulty by herself. Vitals are stable and labs reviewed. test was offered but she declined, stating that she has tubal ligation. Risks are explained for her and she verbalized understanding Review of Systems CONSTITUTIONAL: No fever, no malaise, no fatigue. HEENT: No recent visual problems or hearing problems. Denied any sore throat. CARDIOVASCULAR: No orthopnea, PND, no palpitations, no syncope. PULMONARY: No shortness of breath, no cough, no hemoptysis. GASTROINTESTINAL: No diarrhea, no nausea, no vomiting, no abdominal pain. Normoactive bowel sounds. NEUROLOGICAL: No headaches, no weakness, no numbness. HEMATOLOGICAL: Denies any bleeding or petechiae. GENITOURINARY: Denies any burning micturition, frequency, or urgency. MUSCULOSKELETAL/RHEUMATOLOGICAL: Denies any joint pain, swelling, or any muscle pain. ENDOCRINE: Denies any polyuria or polydipsia. Past Medical History Past Medical History: Blood Disorder, COPD, CVA/TIA, Hypertension Additional Past Medical History / Comment(s): factor 5 blood disorder History of Any Multi-Drug Resistant Organisms: None Reported Past Surgical History: Section, Orthopedic Surgery, Tubal Ligation Past Anesthesia/Blood Transfusion Reactions: Postoperative Nausea & Vomiting (PONV) Additional Past Anesthesia/Blood Transfusion Reaction / Comm: Pt has a long period of time coming out of it and "freaks" out. Past Psychological History: Anxiety, Depression, PTSD Smoking Status: Current every day smoker Past Alcohol Use History: Heavy Past Drug Use History: None Reported Additional Drug Use History / Comment(s): Family hx of abuse with alcohol. Medications and Allergies Home Medications Medication Instructions Recorded Confirmed Type Metoprolol Succinate (ER) [Toprol 50 mg PO DAILY 05/26/15 11/07/19 History Xl] Albuterol Inhaler [Ventolin Hfa 2 puff INHALATION RT-Q4H PRN 09/30/18 11/07/19 History Inhaler] FLUoxetine HCL [PROzac] 40 mg PO DAILY 09/30/18 11/07/19 History Fluticasone/Salmeterol 1 puff INHALATION RT-BID 09/30/18 11/07/19 History [Fluticasone-Salmeterol 232-14] Montelukast Sodium [Singulair] 10 mg PO DAILY 09/30/18 11/07/19 History Rivaroxaban [Xarelto] 20 mg PO DAILY 09/30/18 11/07/19 History Gabapentin [Neurontin] 300 mg PO TID 11/07/19 11/07/19 History Latanoprost/Pf [Latanoprost 0.005% 1 drop BOTH EYES DAILY 11/07/19 11/07/19 History Eye Drop] traMADol HCL 50 - 100 mg PO TID PRN 11/07/19 11/07/19 History Allergies Allergy/AdvReac Type Severity Reaction Status Date / Time hydrocodone Allergy RASH/"OUT Verified 11/07/19 23:16 OF IT FOR SEVERAL DAYS" Physical Exam Vitals: Vital Signs Temp Pulse Pulse Resp BP BP Pulse Ox 11/08/19 09:30 87 18 132/78 11/08/19 08:30 97.3 F L 83 16 140/77 11/07/19 22:11 98.2 F 82 18 147/87 97 Intake and Output 11/07/19 11/08/19 11/08/19 22:59 06:59 14:59 Other: Weight 65.771 kg 65.771 kg GENERAL: The patient is alert and oriented x3, not in any acute distress. Well developed, well nourished. HEENT: Pupils are round and equally reacting to light. EOMI. No scleral icterus. No conjunctival pallor. Normocephalic, atraumatic. No pharyngeal erythema. No thyromegaly. CARDIOVASCULAR: S1 and S2 present. No murmurs, rubs, or gallops. PULMONARY: Chest is clear to auscultation, no wheezing or crackles. ABDOMEN: Soft, nontender, nondistended, normoactive bowel sounds. No palpable organomegaly. MUSCULOSKELETAL: No joint swelling or deformity. EXTREMITIES: No cyanosis, clubbing, or pedal edema. NEUROLOGICAL: Gross neurological examination did not reveal any focal deficits. SKIN: No rashes. 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 Patient is on xarelto hypertension Nicotine dependence Alcohol abuse, at-risk of withdrawal Severe depression with psychotic symptoms, management as per psychiatry primary team Plan: This is a pleasant 49 years old female who presents with signs symptoms of depression. She also nicotine dependence and alcohol abuse. Management of her mental illnesses as per primary team. Continue with nicotine patch and patient is counseled and she agrees to quit. Prescribed Ativan as needed for possible alcohol withdrawal and thiamine vitamins. Continue with xarelto Labs and medication were reviewed.. Continue same treatment. Continue with symptomatic treatment. Resume home medication. Monitor lytes and vitals. DVT and GI prophylaxis. Further recommendations of the clinical course of the patient Patient is low risk for DVT and she is mobile, no need for heparin, no need for GI prophylaxis Thank you for consulting us, we will see the patient on as needed basis. Please feel free to contact us for any further question or clarification
[2019-11-08] MEDS: RIVAROXABAN 20 MG TAB PO SCH (16:42)
[2019-11-08] MEDS ORDERED: ALBUTEROL INHALER 60 PUFF/8 GM INHALER INHALATION PRN (22:01)
[2019-11-09 08:59] LABS: Basophils % (A) 0 %; Eosinophils # (A) 0.1 k/uL (0-0.7); Eosinophils % (A) 1 %; HCT 42.7 % (34.0-46.0); HGB 14.3 gm/dL (11.4-16.0); Lymphocytes # (A) 2.1 k/uL (1.0-4.8); Lymphocytes % (A) 24 %; MCH 32.9 pg (25.0-35.0); MCHC 33.6 g/dL (31.0-37.0); Mean Platelet Volume 9.2; Monocytes # (A) 0.7 k/uL (0-1.0); Monocytes % (A) 8 %; Neutrophils # (A) 5.8 k/uL (1.3-7.7); Neutrophils % (A) 66 %; Platelet Count 244 k/uL (150-450); RBC 4.36 m/uL (3.80-5.40); RDW 13.3 % (11.5-15.5); WBC 8.8 k/uL (3.8-10.6)
[2019-11-09 09:20] LABS: ALT 12 U/L (4-34); AST 24 U/L (14-36); African American GFR (CKD) >90 (>60 ml/min/1.73 sqM); Albumin 4.3 g/dL (3.5-5.0); Alkaline Phosphatase 46 U/L (38-126); Anion Gap 9 mmol/L; Bilirubin, Delta 0.3 mg/dL (0.0-0.2); Bilirubin,Unconjugated 0.4 mg/dL (0.0-1.1); Blood Urea Nitrogen 11 mg/dL (7-17); Calcium 9.6 mg/dL (8.4-10.2); Carbon Dioxide 25 mmol/L (22-30); Chloride 105 mmol/L (98-107); Cholesterol 196 mg/dL (<200); Glucose 95 mg/dL (74-99); HDL Cholesterol 63 mg/dL (40-60); LDL Cholesterol,Calculated 100 mg/dL (0-99); Non-African American GFR(CKD) >90 (>60 ml/min/1.73 sqM); Potassium 4.1 mmol/L (3.5-5.1); Sodium 139 mmol/L (137-145); Total Bilirubin 0.7 mg/dL (0.2-1.3); Total Protein 7.2 g/dL (6.3-8.2); Triglycerides 164 mg/dL (<150)
[2019-11-09] MEDS: GABAPENTIN 300 MG CAP PO SCH ×3 (09:22→21:30)
[2019-11-09] MEDS: METOPROLOL SUCCINATE (ER) 50 MG TAB.ER.24H PO SCH (09:22)
[2019-11-09] MEDS: NICOTINE 14MG/24HR PATCH TRANSDERM SCH (09:22)
[2019-11-09] MEDS: FLUoxetine HCL 20 MG CAP PO SCH (09:22)
[2019-11-09] MEDS: LATANOPROST 0.005% OPHTH DROPS 2.5 ML BTL BOTH EYES SCH (09:23)
[2019-11-09] MEDS: ALBUTEROL INHALER 60 PUFF/8 GM INHALER INHALATION PRN (09:25)
--- NOTE | 2019-11-09 10:12 | P.PN ---
Progress Note - Text Interval history: The patient is found in group she follows me to an interview room. She indicates that her mood in terms of depression is improved. She is struggling with sleep and staff reported she slept 5 hours. We discussed using trazodone and she is agreeable. We discussed titrating her Prozac further and she is agreeable. Anxiety symptoms persist. She has been attending groups. Appetite stable. She states that she had a visit from her and 2 daughters last evening which was helpful. She still does not want inpatient chemical dependency treatment but is willing to participate in AA once discharged. Mental status exam: The patient is alert she is dressed in hospital gowns and her own pants. Hygiene grooming adequate. Eye contact is appropriate speech is fluent and spontaneous nonpressured. She reports that her mood is down but better than yesterday. She still has some hopeless thoughts but feels safe here in the hospital. She is reporting no acute suicidal thoughts here on the mental health unit. She is reporting no homicidal ideation intent or plan. She is reporting no auditory or visual hallucinations or any specific delusions. She demonstrates no tangential thinking loose associations or flight of ideas. Affect is constricted today no tearfulness. She demonstrates no verbal or physi lisseth aggressiveness. She remains oriented to person place and date. Plan: The patient will continue on the Prozac we will titrate the dose to 60 mg daily we will add trazodone 50 mg at bedtime for sleep. Vital signs reviewed her CIWA scores are quite low. We will monitor her for safety and encourage full participation in the milieu. She requires continued psychiatric hospitalization to stabilize her mood. We will continue discussing inpatient chemical dependency treatment as an option upon discharge.
[2019-11-09] MEDS: RIVAROXABAN 20 MG TAB PO SCH (16:46)
[2019-11-09 18:32] LABS: Hemoglobin A1C 5.6 % (4.0-6.0)
[2019-11-09 19:40] LABS: Appearance,Urine Clear (Clear); Bilirubin,Urine Negative (Negative); Blood,Urine Trace (Negative); Color,Urine Light Yellow; Glucose,Urine (UA) Negative (Negative); Ketones,Urine Negative (Negative); Leukocyte Esterase,Urine Negative (Negative); Nitrite,Urine Negative (Negative); Protein,Urine Negative (Negative); RBC,Urine 1 /hpf (0-5); Specific Gravity,Urine 1.003 (1.001-1.035); Urobilinogen,Urine <2.0 mg/dL (<2.0); WBC,Urine <1 /hpf (0-5)
[2019-11-09] MEDS ORDERED: traZODone HCL 50 MG TAB PO SCH (21:00)
[2019-11-09] MEDS: MONTELUKAST 10 MG TAB PO SCH (21:30)
[2019-11-10] MEDS: LATANOPROST 0.005% OPHTH DROPS 2.5 ML BTL BOTH EYES SCH (08:51)
[2019-11-10] MEDS: NICOTINE 14MG/24HR PATCH TRANSDERM SCH (08:51)
[2019-11-10] MEDS: FLUoxetine HCL 20 MG CAP PO SCH (08:51)
[2019-11-10] MEDS: GABAPENTIN 300 MG CAP PO SCH ×3 (08:51→22:03)
[2019-11-10] MEDS: METOPROLOL SUCCINATE (ER) 50 MG TAB.ER.24H PO SCH (08:52)
--- NOTE | 2019-11-10 09:18 | P.PN ---
Progress Note - Text Interval history: The patient is found in the hallway she follows me to an interview room. She indicates her mood is blah. She still is feeling depressed and anxious. She indicates that yesterday there were times when her mood was a little better. She continues to have some difficulty sleeping she is napping during the day she is encouraged to not nap during the day. She has been attending some groups. She continues to speak to family members over the phone and overall finds that supportive. She indicates her has decided to discontinue alcohol use as well in supporting her sobriety. We reviewed her psychotropic medications. We discussed titrating the trazodone further. We discussed some coping skill strategies. Mental status exam: The patient is alert hygiene is adequate she has a disheveled appearance she is dressed in a hospital gown. Eye contact is appropriate she's cooperative and pleasant throughout the interaction. She describes some continued feelings of depression and anxiety. She does shake her leg throughout the session. She reports feeling safe in the hospital she is reporting no homicidal ideation intent or plan. She still has some hopelessness thinking but feels her mood is better than when she first came in the hospital. She is reporting no auditory or visual hallucinations or any specific delusions. There is no observed evidence of psychosis. She demonstrates no tangential thinking loose associations or flight of ideas. She does not appear hypomanic or manic. Insight and judgment slowly improving. Plan: The patient will continue on her current psychotropic medications. I will titrate the trazodone 100 mg at bedtime. She is encouraged to fully participate in the milieu. Vital signs reviewed. She is demonstrating no evidence of withdrawal from alcohol. She requires continued psychiatric hospitalization to further stabilize her mood. She anticipates her will visit over the weekend we will contact him afterwards to see how she is approximating her baseline function.
[2019-11-10] MEDS: ALBUTEROL INHALER 60 PUFF/8 GM INHALER INHALATION PRN (17:56)
[2019-11-10] MEDS: RIVAROXABAN 20 MG TAB PO SCH (17:56)
[2019-11-10] MEDS: MONTELUKAST 10 MG TAB PO SCH (22:03)
[2019-11-10] MEDS: traZODone HCL 100 MG TAB PO SCH (22:03)
[2019-11-11] MEDS: NICOTINE 14MG/24HR PATCH TRANSDERM SCH (08:48)
[2019-11-11] MEDS: LATANOPROST 0.005% OPHTH DROPS 2.5 ML BTL BOTH EYES SCH (08:48)
[2019-11-11] MEDS: FLUoxetine HCL 20 MG CAP PO SCH (08:48)
[2019-11-11] MEDS: GABAPENTIN 300 MG CAP PO SCH ×3 (08:48→21:49)
[2019-11-11] MEDS: METOPROLOL SUCCINATE (ER) 50 MG TAB.ER.24H PO SCH (08:49)
[2019-11-11] MEDS: ACETAMINOPHEN TAB 325 MG TAB PO PRN (08:49)
[2019-11-11] MEDS: RIVAROXABAN 20 MG TAB PO SCH (16:07)
--- NOTE | 2019-11-11 20:59 | P.PN ---
Progress Note - Text Progress Note Date: 11/11/19 Interval history: Patient is seen in cross coverage today. She says she slept about 4 hours last night. She does not verbalize any adverse psychotropic medication side effects she does describe that her mood is feeling better. She has been attending groups and has been reading information regarding AA. Mental status exam: She is alert and cooperative with the interview. Her speech is fluent, not rapid or pressured. Thought processes organized. Her mood is improved. She does not verbalize any thoughts of harm to self or others. She does not show evidence of psychosis or agitation. Plan: Patient will be maintained on current psychotropic medication regimen. Continue to monitor for any medication side effects and monitor her ongoing response to treatment.
[2019-11-11] MEDS: MONTELUKAST 10 MG TAB PO SCH (21:49)
[2019-11-11] MEDS: traZODone HCL 100 MG TAB PO SCH (21:49)
[2019-11-12] MEDS: FLUoxetine HCL 20 MG CAP PO SCH (08:57)
[2019-11-12] MEDS: NICOTINE 14MG/24HR PATCH TRANSDERM SCH (08:57)
[2019-11-12] MEDS: LATANOPROST 0.005% OPHTH DROPS 2.5 ML BTL BOTH EYES SCH (08:57)
[2019-11-12] MEDS: GABAPENTIN 300 MG CAP PO SCH ×3 (08:57→21:17)
[2019-11-12] MEDS: ALBUTEROL INHALER 60 PUFF/8 GM INHALER INHALATION PRN ×2 (08:58→21:17)
[2019-11-12] MEDS: METOPROLOL SUCCINATE (ER) 50 MG TAB.ER.24H PO SCH (08:58)
[2019-11-12] MEDS: ACETAMINOPHEN TAB 325 MG TAB PO PRN ×2 (12:36→18:11)
--- NOTE | 2019-11-12 15:21 | P.PN ---
Progress Note - Text Progress Note Date: 11/12/19 Interval history: Patient is seen in [facility] again today. She says she slept only about 4 hours last night. She says today is a rough day for her pain and that's having an impact on her mood being kind of irritable and down. Mental status exam: She is alert and cooperative with the interview. Her speech is fluent, not rapid or pressured. Her thought processes are organized. She denies any thoughts of harm to self or others. Her mood she describes is kind of irritable and down today. She does not show any evidence of psychosis or agitation. Plan: Patient will be maintained on current psychotropic medication regimen. Continue to monitor any medication side effects and monitor her ongoing response to treatment.
[2019-11-12] MEDS: RIVAROXABAN 20 MG TAB PO SCH (17:43)
[2019-11-12] MEDS: MONTELUKAST 10 MG TAB PO SCH (21:17)
[2019-11-12] MEDS: traZODone HCL 100 MG TAB PO SCH (21:17)
[2019-11-13] MEDS: NICOTINE 14MG/24HR PATCH TRANSDERM SCH (08:46)
[2019-11-13] MEDS: FLUoxetine HCL 20 MG CAP PO SCH (08:47)
[2019-11-13] MEDS: METOPROLOL SUCCINATE (ER) 50 MG TAB.ER.24H PO SCH (08:47)
[2019-11-13] MEDS: GABAPENTIN 300 MG CAP PO SCH ×3 (08:47→22:28)
[2019-11-13] MEDS: LATANOPROST 0.005% OPHTH DROPS 2.5 ML BTL BOTH EYES SCH (08:48)
[2019-11-13] MEDS: ACETAMINOPHEN TAB 325 MG TAB PO PRN (08:50)
--- NOTE | 2019-11-13 10:10 | P.PN ---
Progress Note - Text Interval history: The patient is found in group she follows me to an interview room. She reports she is experiencing more pain. She is asking to be able to use tramadol once a day as needed. She indicates this is prescribed to her by her pain physician. She has been speaking with family via phone. She indicates her mood is improving. We discussed her psychotropic medications. We spent several minutes discussing strategies for her remaining sober upon discharge. She continues to feel that she does not want to attend inpatient chemical dependency treatment. She is willing to go to a meetings establish with a sponsor. She has been attending groups. She has been eating she slept approximately 6 or 7 hours last evening. Mental status exam: The patient is alert she is dressed in her own clothing hygiene grooming adequate. Speech is fluent spontaneous nonpressured. She reports no acute suicidal ideation intent or plan she reports no thoughts of harming others. She is reporting no auditory or visual hallucinations or any specific delusions. There is no observed evidence of psychosis. She demonstrates no tangential thinking loose associations or flight of ideas. She does not appear hypomanic or manic. She demonstrates no verbal or physical aggressiveness. She demonstrates future oriented thinking. She remains oriented to person place and date. Plan: The patient's will continue on her current psychotropic medication. We will monitor for safety. She demonstrates no evidence of any alcohol withdrawal. Social work will be asked to arrange a support meeting involving her . We will consider discharging her tomorrow if clinically stable.
[2019-11-13] MEDS: traMADol 50 MG TAB PO PRN (10:25)
[2019-11-13] MEDS: RIVAROXABAN 20 MG TAB PO SCH (17:47)
[2019-11-13] MEDS: MONTELUKAST 10 MG TAB PO SCH (22:28)
[2019-11-13] MEDS: traZODone HCL 100 MG TAB PO SCH (22:28)
[2019-11-14 07:06] VITALS: BP 97/55; PULSE 67; RESP 15; TEMP 97.5
[2019-11-14] MEDS: METOPROLOL SUCCINATE (ER) 50 MG TAB.ER.24H PO SCH (08:43)
[2019-11-14] MEDS: GABAPENTIN 300 MG CAP PO SCH (08:43)
[2019-11-14] MEDS: NICOTINE 14MG/24HR PATCH TRANSDERM SCH (08:43)
[2019-11-14] MEDS: FLUoxetine HCL 20 MG CAP PO SCH (08:44)
[2019-11-14] MEDS: LATANOPROST 0.005% OPHTH DROPS 2.5 ML BTL BOTH EYES SCH (08:44)
[2019-11-14] MEDS: traMADol 50 MG TAB PO PRN (08:46)
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
== END 2019-11-14 13:24 | disposition home or self-care (01) | DRG 885 ==
LOC: EC 22:10 → 3MHU 11-08 07:15
PROVIDERS: ADMIT Psychiatry & Neurology Psychiatry; ATTEND Psychiatry & Neurology Psychiatry
DX: F33.2 Major depressive disorder, recurrent severe without psychotic features (principal); D68.2 Hereditary deficiency of other clotting factors; R45.851 Suicidal ideations; F17.200 Nicotine dependence, unspecified, uncomplicated; F10.20 Alcohol dependence, uncomplicated; F41.1 Generalized anxiety disorder; F43.12 Post-traumatic stress disorder, chronic; G89.29 Other chronic pain; I10 Essential (primary) hypertension; J44.9 Chronic obstructive pulmonary disease, unspecified; Z79.01 Long term (current) use of anticoagulants; Z79.899 Other long term (current) drug therapy; Z81.8 Family history of other mental and behavioral disorders
CPT/HCPCS: 80053; 80061; 80306; 81001; 81025; 82075; 82248; 83036; 84443; 85025; 94640; 99285

== ENCOUNTER 2020-01-09 15:04 | Emergency (ER) | payer OTHER ==
[2020-01-09 15:09] VITALS: BP 129/80; PULSE 75; RESP 18; TEMP 98
[2020-01-09] MEDS ORDERED: LIDOCAINE 1% INJ 10MG/ML (20 ML MDV) SQ ONE (15:14)
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
[2020-01-09] MEDS ORDERED: ACET/COD 300 MG/30 MG STARTER PACK 6 TAB BTL PO STA (15:33)
--- NOTE | 2020-01-11 01:41 | CDI ---
Dear Nasim Marley PA-C: Please do addendum clarification whether Incision and Drainage procedure performed on both Groin and Vulva/Vaginal areas as we have two specific CPT codes for each site, as it was mentioned in Procedure Note, under indication - Right groin abscess, site vulva/vagina and in physical exam mentioned Right groin, right labial abscess noted. Thank You, Sandy Paige, [employer]. If you have any questions, please contact Stroke Program Coordinator at [phone]. FRDEAD
== END 2020-01-09 15:44 | disposition home or self-care (01) ==
LOC: EC 15:04
DX: L02.214 Cutaneous abscess of groin (principal); N76.4 Abscess of vulva; D68.51 Activated protein C resistance; I10 Essential (primary) hypertension; F43.10 Post-traumatic stress disorder, unspecified; F17.200 Nicotine dependence, unspecified, uncomplicated; Z88.5 Allergy status to narcotic agent; Z79.01 Long term (current) use of anticoagulants; Z79.51 Long term (current) use of inhaled steroids; Z79.899 Other long term (current) drug therapy; Z86.73 Personal history of transient ischemic attack (TIA), and cerebral infarction without residual deficits
CPT/HCPCS: 99283; 10060; 87070; 87205; J2001

== ENCOUNTER 2020-06-27 17:21 | Emergency (ER) | payer MEDICAID, OTHER ==
[2020-06-27 17:27] VITALS: TEMP 98.3
--- NOTE | 2020-06-27 17:29 | ED ---
Abdominal Pain HPI - General Chief Complaint: Abdominal Pain Stated Complaint: jaxon Covid, jaxon appsidra Time Seen by Provider: 06/27/20 17:29 Source: patient Mode of arrival: ambulatory Limitations: no limitations - History of Present Illness Initial Comments: Patient is a 50-year-old female presenting to emergency Department with a chief complaint of abdominal pain and diarrhea. Patient states her symptoms began about 3 days ago with the abdominal pain which is located in the right lower quadrant. Umbilical region. Patient reports the pain comes and goes and alternates between sharp and dull. States the pain is not postprandial. States she is also developed a headache that she has not been eating much. Does report nausea but no vomiting. States she's been having loose stools for the past 3 days with no hematochezia or melena. Denies any night sweats or chills. Does report a cough but states that is typical for her secondary to COPD. Denies any chest pain and back pain. Patient sent to the emergency department for CT imaging and rule out appendicitis. - Related Data Home Medications Medication Instructions Recorded Confirmed Metoprolol Succinate (ER) [Toprol 50 mg PO DAILY 05/26/15 11/07/19 XL] Albuterol Inhaler (Mhu) [Ventolin 2 puff INHALATION RT-Q4H PRN 09/30/18 11/07/19 Hfa Inhaler (Mhu)] Fluticasone/Salmeterol 1 puff INHALATION RT-BID 09/30/18 11/07/19 [Fluticasone-Salmeterol 232-14] Montelukast Sodium [Singulair] 10 mg PO DAILY 09/30/18 11/07/19 Rivaroxaban [Xarelto] 20 mg PO DAILY 09/30/18 11/07/19 Gabapentin [Neurontin] 300 mg PO TID 11/07/19 11/07/19 Latanoprost/Pf [Latanoprost 0.005% 1 drop BOTH EYES DAILY 11/07/19 11/07/19 Eye Drop] traMADol HCL 50 - 100 mg PO TID PRN 11/07/19 11/07/19 Previous Rx's Medication Instructions Recorded FLUoxetine HCL [PROzac] 60 mg PO DAILY #45 cap 11/14/19 Nicotine 14Mg/24Hr Patch [Habitrol] 1 patch TRANSDERM DAILY #14 patch 11/14/19 traZODone HCL [Desyrel] 100 mg PO HS #30 tab 11/14/19 Sulfamethox-Tmp 800-160Mg [Bactrim 1 each PO Q12HR #20 tab 01/09/20 Ds] Dicyclomine [Bentyl] 20 mg PO TID #30 tablet 06/27/20 Allergies Allergy/AdvReac Type Severity Reaction Status Date / Time hydrocodone Allergy RASH/"OUT Verified 06/27/20 17:27 OF IT FOR SEVERAL DAYS" Review of Systems ROS Statement: Those systems with pertinent positive or pertinent negative responses have been documented in the HPI. ROS Other: All systems not noted in ROS Statement are negative. 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 Past Psychological History: PTSD Smoking Status: Current every day smoker Past Alcohol Use History: Occasional Past Drug Use History: None Reported General Exam Limitations: no limitations General appearance: alert, in no apparent distress Head exam: Present: atraumatic, normocephalic, normal inspection Eye exam: Present: normal appearance, PERRL, EOMI Pupils: Present: normal accommodation ENT exam: Present: normal exam, normal oropharynx, mucous membranes moist Neck exam: Present: normal inspection, full ROM. Absent: tenderness, meningismus Respiratory exam: Present: normal lung sounds bilaterally. Absent: respiratory distress, wheezes, rales, rhonchi, stridor, decreased breath sounds Cardiovascular Exam: Present: regular rate, normal rhythm, normal heart sounds GI/Abdominal exam: Present: soft, tenderness (McBurney point tenderness,. Umbilical tenderness.). Absent: distended, guarding, rebound, rigid Extremities exam: Present: normal inspection, full ROM, normal capillary refill. Absent: tenderness Back exam: Present: normal inspection, full ROM. Absent: tenderness, CVA tende rness (R), CVA tenderness (L) Neurological exam: Present: alert, oriented X3 Psychiatric exam: Present: normal affect, normal mood Skin exam: Present: warm, dry, intact, normal color Course Vital Signs 06/27/20 17:23 Temperature 98.3 F Pulse Rate 75 Respiratory 18 Rate Blood Pressure 134/77 O2 Sat by Pulse 98 Oximetry Medical Decision Making - Medical Decision Making Patient is a 50-year-old female presenting to emergency Department with a chief complaint of abdominal pain and diarrhea. On exam patient does appear to have right lower quadrant as well as periumbilical tenderness. No CVA tenderness. She also complained of a gradual onset headache. No photophobia nausea or vomiting. Patient was given IV fluids, Toradol and Bentyl. On reevaluation patient reports improvement in symptoms although she steel feels the pain. Patient was given tramadol which is what she takes at home. CT of abdomen and pelvis is unremarkable. CBC CMP and UA are unremarkable. She was advised to follow with a primary care physician. She will be discharged with Bentyl. Advised to follow a brat diet. Strict return parameters were thoroughly discussed with patient is a worsening agreeable. Case discussed with physician. - Lab Data Result diagrams: 06/27/20 17:57 06/27/20 17:57 Lab Results 06/27/20 06/27/20 06/27/20 Range/Units 17:57 17:57 17:57 WBC 5.8 (3.8-10.6) k/uL RBC 4.43 (3.80-5.40) m/uL Hgb 12.9 (11.4-16.0) gm/dL Hct 40.4 (34.0-46.0) % MCV 91.1 (80.0-100.0) fL MCH 29.0 (25.0-35.0) pg MCHC 31.9 (31.0-37.0) g/dL RDW 14.9 (11.5-15.5) % Plt Count 236 (150-450) k/uL Neutrophils % 53 % Lymphocytes % 34 % Monocytes % 9 % Eosinophils % 1 % Basophils % 0 % Neutrophils # 3.0 (1.3-7.7) k/uL Lymphocytes # 2.0 (1.0-4.8) k/uL Monocytes # 0.5 (0-1.0) k/uL Eosinophils # 0.0 (0-0.7) k/uL Basophils # 0.0 (0-0.2) k/uL Sodium 135 L (137-145) mmol/L Potassium 4.5 (3.5-5.1) mmol/L Chloride 106 (98-107) mmol/L Carbon Dioxide 20 L (22-30) mmol/L Anion Gap 9 mmol/L BUN 7 (7-17) mg/dL Creatinine 0.60 (0.52-1.04) mg/dL Est GFR (CKD-EPI)AfAm >90 (>60 ml/min/1.73 sqM) Est GFR (CKD-EPI)NonAf >90 (>60 ml/min/1.73 sqM) Glucose 83 (74-99) mg/dL Calcium 9.5 (8.4-10.2) mg/dL Total Bilirubin 0.6 (0.2-1.3) mg/dL AST 30 (14-36) U/L ALT 12 (4-34) U/L Alkaline Phosphatase 44 (38-126) U/L Total Protein 7.5 (6.3-8.2) g/dL Albumin 4.6 (3.5-5.0) g/dL Lipase 53 (23-300) U/L Urine Color Light Yellow Urine Appearance Clear (Clear) Urine pH 5.5 (5.0-8.0) Ur Specific [place] 1.004 (1.001-1.035) Urine Protein Negative (Negative) Urine Glucose (UA) Negative (Negative) Urine Ketones Negative (Negative) Urine Blood Trace H (Negative) Urine Nitrite Negative (Negative) Urine Bilirubin Negative (Negative) Urine Urobilinogen <2.0 (<2.0) mg/dL Ur Leukocyte Esterase Negative (Negative) Urine RBC <1 (0-5) /hpf Urine WBC <1 (0-5) /hpf Ur Squamous Epith Cells 2 (0-4) /hpf Urine Bacteria Rare H (None) /hpf Disposition Clinical Impression: Abdominal pain, Diarrhea Disposition: HOME SELF-CARE Condition: Stable Instructions (If sedation given, give patient instructions): Abdominal Pain (ED) Additional Instructions: Follow with her primary care physician. Return to emergency department if symptoms worsen. Prescriptions: Dicyclomine [Bentyl] 20 mg PO TID #30 tablet Is patient prescribed a controlled substance at d/c from ED?: No Referrals: Grecia Paulino III, MD [Primary Care Provider] - 1-2 days Time of Disposition: 19:50
[2020-06-27] MEDS ORDERED: SODIUM CHLORIDE 0.9% 1,000 ML IV STA (17:38)
[2020-06-27] MEDS ORDERED: DICYCLOMINE 20 MG TAB PO STA (17:44)
[2020-06-27] MEDS ORDERED: KETOROLAC 15 MG/ML 1 ML VIAL IVP STA (17:44)
[2020-06-27] MEDS ORDERED: FAMOTIDINE 20 MG/2 ML VIAL IV STA (17:45)
[2020-06-27 18:13] LABS: Basophils % (A) 0 %; Eosinophils % (A) 1 %; HCT 40.4 % (34.0-46.0); HGB 12.9 gm/dL (11.4-16.0); Lymphocytes % (A) 34 %; MCHC 31.9 g/dL (31.0-37.0); MCV 91.1 fL (80.0-100.0); Mean Platelet Volume 9.9; Monocytes # (A) 0.5 k/uL (0-1.0); Monocytes % (A) 9 %; Neutrophils % (A) 53 %; Platelet Count 236 k/uL (150-450); RBC 4.43 m/uL (3.80-5.40); RDW 14.9 % (11.5-15.5); WBC 5.8 k/uL (3.8-10.6)
[2020-06-27 18:15] LABS: Appearance,Urine Clear (Clear); Bacteria,Urine Rare /hpf; Bilirubin,Urine Negative (Negative); Blood,Urine Trace (Negative); Color,Urine Light Yellow; Glucose,Urine (UA) Negative (Negative); Ketones,Urine Negative (Negative); Leukocyte Esterase,Urine Negative (Negative); Nitrite,Urine Negative (Negative); PH, Urine 5.5 (5.0-8.0); Protein,Urine Negative (Negative); RBC,Urine <1 /hpf (0-5); Specific Gravity,Urine 1.004 (1.001-1.035); Squamous Epithelial Cell,Urine 2 /hpf (0-4); Urobilinogen,Urine <2.0 mg/dL (<2.0); WBC,Urine <1 /hpf (0-5)
[2020-06-27 18:24] LABS: ALT 12 U/L (4-34); AST 30 U/L (14-36); African American GFR (CKD) >90 (>60 ml/min/1.73 sqM); Albumin 4.6 g/dL (3.5-5.0); Alkaline Phosphatase 44 U/L (38-126); Anion Gap 9 mmol/L; Blood Urea Nitrogen 7 mg/dL (7-17); Calcium 9.5 mg/dL (8.4-10.2); Carbon Dioxide 20 mmol/L (22-30); Chloride 106 mmol/L (98-107); Glucose 83 mg/dL (74-99); Lipase 53 U/L (23-300); Non-African American GFR(CKD) >90 (>60 ml/min/1.73 sqM); Potassium 4.5 mmol/L (3.5-5.1); Sodium 135 mmol/L (137-145); Total Bilirubin 0.6 mg/dL (0.2-1.3); Total Protein 7.5 g/dL (6.3-8.2)
--- NOTE | 2020-06-27 19:34 | CT ---
EXAMINATION TYPE: CT abdomen pelvis w con DATE OF EXAM: 06/27/2020 COMPARISON: 05/26/2015 HISTORY: Right lower quadrant abdominal pain, nausea and diarrhea x3 days. CT DLP: 684.6 mGycm Automated exposure control for dose reduction was used. TECHNIQUE: Helical acquisition of images was performed from the lung bases through the pelvis. CONTRAST: Performed without Oral Contrast and with IV Contrast, patient injected with 100ml mL of Iso isael 300. FINDINGS: LUNG BASES: No significant abnormality is appreciated. LIVER/GB: No significant abnormality is appreciated. PANCREAS: No significant abnormality is seen. SPLEEN: No significant abnormality is seen. ADRENALS: No significant abnormality is seen. KIDNEYS: No significant abnormality is seen. FREE AIR: No free air is visualized. RETROPERITONEAL ADENOPATHY: None visualized REPRODUCTIVE ORGANS: No significant abnormality is seen URINARY BLADDER: No significant abnormality is seen. PELVIC ADENOPATHY: None visualized. OSSEOUS STRUCTURES: No significant abnormality is seen. BOWEL: No significant abnormality is seen. 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 The appendix is well-visualized and has normal appearance. OTHER: No acute vascular findings. IMPRESSION: NO ACUTE PROCESS.
[2020-06-27] MEDS ORDERED: MORPHINE SULFATE 4 MG/ML SYRINGE IVP STA (19:42)
[2020-06-27] MEDS ORDERED: traMADol 50 MG TAB PO STA (20:13)
[2020-06-27 20:41] VITALS: BP 149/91; PULSE 61; RESP 16
== END 2020-06-27 20:18 | disposition home or self-care (01) ==
LOC: EC 17:21
DX: R10.9 Unspecified abdominal pain (principal); R19.7 Diarrhea, unspecified; F17.200 Nicotine dependence, unspecified, uncomplicated; R51 Headache; D68.51 Activated protein C resistance; J44.9 Chronic obstructive pulmonary disease, unspecified; I10 Essential (primary) hypertension; Z79.51 Long term (current) use of inhaled steroids; Z79.899 Other long term (current) drug therapy; Z79.01 Long term (current) use of anticoagulants; Z88.5 Allergy status to narcotic agent; Z86.73 Personal history of transient ischemic attack (TIA), and cerebral infarction without residual deficits; Z20.828 Contact with and (suspected) exposure to other viral communicable diseases
CPT/HCPCS: 99284; 96374; 96375; 96361; 36415; 80053; 83690; 85025; 81001; 74177; U0003; J1885; Q9967

== ENCOUNTER → 2020-11-05 | Outpatient (CLI) | payer OTHER | END | disposition home or self-care (01) | LOC: LABWHC1 11:20 | PROVIDERS: ATTEND Family Medicine | DX: R05 Cough (principal); Z20.822 Contact with and (suspected) exposure to COVID-19 | CPT/HCPCS: U0003; C9803; U0005 ==

== ENCOUNTER → 2021-02-06 | Outpatient (CLI) | payer OTHER | END | disposition home or self-care (01) | LOC: LABWHC1 16:24 | PROVIDERS: ATTEND Family Medicine | DX: U07.1 COVID-19 (principal) | CPT/HCPCS: U0003; C9803; U0005 ==

== ENCOUNTER 2021-02-12 16:23 | Emergency (ER) | payer OTHER ==
[2021-02-12 16:44] VITALS: BP 124/83; PULSE 61; RESP 18; TEMP 98.1
--- NOTE | 2021-02-12 16:44 | ED ---
General Adult HPI - General Stated complaint: Covid+/sob/headache/Nausea/abd pain/sore throat Time Seen by Provider: 02/12/21 16:43 Source: patient, RN notes reviewed Mode of arrival: ambulatory Limitations: no limitations - History of Present Illness Initial comments: 50-year-old female presents emergency Department chief complaint of cough congestion shortness of breath. Patient states she tested for positive for covid 3 days ago. Symptoms started 2 weeks ago. Patient states she's has some chest tightness she does have a history of COPD. Denies any pain no leg swelling. no gi symptoms currently. - Related Data Home Medications Medication Instructions Recorded Confirmed Metoprolol Succinate (ER) [Toprol 50 mg PO DAILY 05/26/15 11/07/19 XL] Albuterol Inhaler (Mhu) [Ventolin 2 puff INHALATION RT-Q4H PRN 09/30/18 11/07/19 Hfa Inhaler (Mhu)] Fluticasone/Salmeterol 1 puff INHALATION RT-BID 09/30/18 11/07/19 [Fluticasone-Salmeterol 232-14] Montelukast Sodium [Singulair] 10 mg PO DAILY 09/30/18 11/07/19 Rivaroxaban [Xarelto] 20 mg PO DAILY 09/30/18 11/07/19 Gabapentin [Neurontin] 300 mg PO TID 11/07/19 11/07/19 Latanoprost/Pf [Latanoprost 0.005% 1 drop BOTH EYES DAILY 11/07/19 11/07/19 Eye Drop] traMADol HCL 50 - 100 mg PO TID PRN 11/07/19 11/07/19 Previous Rx's Medication Instructions Recorded FLUoxetine HCL [PROzac] 60 mg PO DAILY #45 cap 11/14/19 Nicotine 14Mg/24Hr Patch [Habitrol] 1 patch TRANSDERM DAILY #14 patch 11/14/19 traZODone HCL [Desyrel] 100 mg PO HS #30 tab 11/14/19 Sulfamethox-Tmp 800-160Mg [Bactrim 1 each PO Q12HR #20 tab 01/09/20 Ds] Dicyclomine [Bentyl] 20 mg PO TID #30 tablet 06/27/20 Dexamethasone [Decadron] 6 mg PO DAILY #5 tablet 02/12/21 Allergies Allergy/AdvReac Type Severity Reaction Status Date / Time hydrocodone Allergy RASH/"OUT Verified 02/12/21 16:40 OF IT FOR SEVERAL DAYS" Review of Systems ROS Statement: Those systems with pertinent positive or pertinent negative responses have been documented in the HPI. ROS Other: All systems not noted in ROS Statement are negative. 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 Past Psychological History: PTSD Smoking Status: Current every day smoker Past Alcohol Use History: Occasional Past Drug Use History: None Reported Course Vital Signs 02/12/21 16:40 Temperature 98.1 F Pulse Rate 61 Respiratory 18 Rate Blood Pressure 124/83 O2 Sat by Pulse 97 Oximetry Medical Decision Making - Medical Decision Making X-ray was reviewed there is no evidence of pneumonia or pneumothorax. Vitals are reviewed patient pulse ox within normal limits. Patient will be discharged on a course of Decadron. Advised to follow-up PCP return for worsening changes symptoms. Disposition Clinical Impression: COVID-19 Disposition: HOME SELF-CARE Condition: Stable Instructions (If sedation given, give patient instructions): Coronavirus Disease 2019 (COVID-19) Additional Instructions: Please return to the Emergency Department if symptoms worsen or any other concerns. Prescriptions: Dexamethasone [Decadron] 6 mg PO DAILY #5 tablet Is patient prescribed a controlled substance at d/c from ED?: No Referrals: Grecia Paulino III, MD [Primary Care Provider] - 1-2 days Time of Disposition: 17:33
--- NOTE | 2021-02-12 17:12 | XR ---
EXAMINATION TYPE: XR chest 2V DATE OF EXAM: 02/12/2021 CLINICAL HISTORY: covid. Shortness of breath, cough, chest tightness. TECHNIQUE: Frontal and lateral view of the chest. COMPARISON: 07/13/2019 FINDINGS: The cardiomediastinal silhouette is within normal limits for size. Pulmonary vasculature i s normal. There is no focal air space opacity. Tiny subsegmental atelectasis at the left costophrenic angle. No pleural effusion. No pneumothorax seen. No acute displaced osseous fracture. IMPRESSION: No acute cardiopulmonary process.
== END 2021-02-12 17:50 | disposition home or self-care (01) ==
LOC: EC 16:23
DX: U07.1 COVID-19 (principal); J44.9 Chronic obstructive pulmonary disease, unspecified; I10 Essential (primary) hypertension; F17.200 Nicotine dependence, unspecified, uncomplicated; Z86.73 Personal history of transient ischemic attack (TIA), and cerebral infarction without residual deficits; Z79.51 Long term (current) use of inhaled steroids
CPT/HCPCS: 71046; 99285

== ENCOUNTER 2021-08-11 20:10 | Emergency (ER) | payer OTHER ==
[2021-08-11 20:32] VITALS: RESP 18
--- NOTE | 2021-08-11 22:42 | ED ---
Psych HPI - General Source: patient, family Mode of arrival: ambulatory <Tim Gold - Last Filed: 08/11/21 22:38> <Merrill Bhardwaj - Last Filed: 08/12/21 05:47> - General Chief Complaint: Psychiatric Symptoms Stated Complaint: Mental Health Time Seen by Provider: 08/11/21 20:36 - History of Present Illness Initial Comments: This 51-year-old female presents with a complaint of alcohol intoxication. She states that she drank quite a bit tonight. She will not quantify how much or what she drank. She apparently voiced some suicidal ideations and is brought in by her son relating that she's been having these for the past several days. She is currently denying any suicidal ideations. She has no current medical complaints. She is not very forthcoming with history likely due to alcohol intoxication. She is fairly standoffish. No other modifying factors. (Tim Gold) - Related Data Home Medications Medication Instructions Recorded Confirmed Metoprolol Succinate (ER) [Toprol 50 mg PO DAILY 05/26/15 08/11/21 XL] Montelukast Sodium [Singulair] 10 mg PO DAILY 09/30/18 08/11/21 Rivaroxaban [Xarelto] 20 mg PO DAILY 09/30/18 08/11/21 Gabapentin [Neurontin] 300 mg PO TID 11/07/19 08/11/21 traMADol HCL 50 mg PO QID PRN 11/07/19 08/11/21 Albuterol Sulfate [Proair Hfa] 2 puff INHALATION RT-Q6H PRN 08/11/21 08/11/21 Atorvastatin [Lipitor] 40 mg PO DAILY 08/11/21 08/11/21 Butalb/APAP/Caff 50-325-40Mg 1 tab PO DAILY PRN 08/11/21 08/11/21 [Fioricet 50-325-40] Clindamycin Topical Soln 1 applic TOPICAL BID 08/11/21 08/11/21 [Cleocin-T Topical Soln] FLUoxetine HCL 80 mg PO DAILY 08/11/21 08/11/21 Loratadine [Claritin] 10 mg PO DAILY PRN 08/11/21 08/11/21 Omeprazole 20 mg PO DAILY PRN 08/11/21 08/11/21 Ondansetron [Zofran] 4 mg PO Q8H PRN 08/11/21 08/11/21 buPROPion HCL [buPROPion HCL Xl] 150 mg PO DAILY 08/11/21 08/11/21 Allergies Allergy/AdvReac Type Severity Reaction Status Date / Time hydrocodone Allergy RASH/"OUT Verified 08/11/21 21:21 OF IT FOR SEVERAL DAYS" Review of Systems ROS Other: All systems not noted in ROS Statement are negative. <Tim Gold - Last Filed: 08/11/21 22:38> ROS Other: All systems not noted in ROS Statement are negative. <Merrill Bhardwaj - Last Filed: 08/12/21 05:47> ROS Statement: Those systems with pertinent positive or pertinent negative responses have been documented in the HPI. 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 Past Psychological History: Anxiety, Depression, PTSD Smoking Status: Current every day smoker Past Alcohol Use History: Occasional Past Drug Use History: None Reported <Tim Gold - Last Filed: 08/11/21 22:38> General Exam Limitations: no limitations <Tim Gold - Last Filed: 08/11/21 22:38> - General Exam Comments Initial Comments: Constitutional: Alert and oriented, no apparent distress Vitals: Reviewed, please see nursing notes HEENT: No gross trauma identified, trachea midline, no respiratory distress Neck: No tenderness, good range of motion Heart: Regular rate and rhythm without murmur Lungs: Clear to auscultation bilaterally, no wheezing rhonchi or rales Abdomen: No tenderness or peritoneal signs noted, nondistended Back: No tenderness Neurologic: No gross sensory or motor deficits identified Integumentary: No rash or change in pigmentation Psychiatric: Alert and oriented, strong odor of alcohol identified, appears intoxicated. (Tim Gold) Course Vital Signs 08/11/21 20:26 Temperature 98.3 F Pulse Rate 68 Respiratory 18 Rate Blood Pressure 101/67 O2 Sat by Pulse 98 Oximetry Medical Decision Making <Tim Gold - Last Filed: 08/11/21 22:38> - Medical Decision Making The patient was seen and examined. A breath alcohol test was done and came back at 221. The urine drug screen is ordered and is pending. Psychiatric consult is placed. We are currently waiting for the patient to obtain sobriety and then mental health evaluation may be obtained. She is counseled regarding alcohol abuse in detail. Case will be signed off to Dr. Bhardwaj at 11:00 pm for final disposition. (Tim Gold) - Lab Data Lab Results 08/12/21 Range/Units 04:16 Urine Opiates Screen Not Detected (NotDetected) Ur Oxycodone Screen Not Detected (NotDetected) Urine Methadone Screen Not Detected (NotDetected) Ur Propoxyphene Screen Not Detected (NotDetected) Ur Barbiturates Screen Not Detected (NotDetected) U Tricyclic Antidepress Not Detected (NotDetected) Ur Phencyclidine Scrn Not Detected (NotDetected) Ur Amphetamines Screen Not Detected (NotDetected) U Methamphetamines Scrn Not Detected (NotDetected) U Benzodiazepines Scrn Detected H (NotDetected) Urine Cocaine Screen Not Detected (NotDetected) U Marijuana (THC) Screen Not Detected (NotDetected) Disposition <Tim Gold - Last Filed: 08/11/21 22:38> Is patient prescribed a controlled substance at d/c from ED?: No <Merrill Bhardwaj - Last Filed: 08/12/21 05:47> Clinical Impression: Alcohol intoxication, Alcohol abuse, Depression Disposition: HOME SELF-CARE Condition: Fair Instructions (If sedation given, give patient instructions): Alcohol Intoxication (ED) Referrals: Grecia Paulino III, MD [Primary Care Provider] - 1-2 days
[2021-08-12 05:13] LABS: Amphetamine Screen,Urine Not Detected (NotDetected); Barbiturate Screen,Urine Not Detected (NotDetected); Benzodiazepines Screen,Urine Detected (NotDetected); Cocaine Screen,Urine Not Detected (NotDetected); Methadone Screen, Urine Not Detected (NotDetected); Opiate Screen,Urine Not Detected (NotDetected); Oxycodone Screen, Urine Not Detected (NotDetected); Phencyclidine Screen,Urine Not Detected (NotDetected); Tricyclic Antidepressant,Urine Not Detected (NotDetected); Urn Cannabinoid Scrn Not Detected (NotDetected)
[2021-08-12 05:53] VITALS: BP 121/75; PULSE 90; TEMP 98
== END 2021-08-12 06:08 | disposition home or self-care (01) ==
LOC: EC 20:10
DX: F10.129 Alcohol abuse with intoxication, unspecified (principal); F32.9 Major depressive disorder, single episode, unspecified; J44.9 Chronic obstructive pulmonary disease, unspecified; I10 Essential (primary) hypertension; F41.9 Anxiety disorder, unspecified; F43.12 Post-traumatic stress disorder, chronic; F17.200 Nicotine dependence, unspecified, uncomplicated; Z88.5 Allergy status to narcotic agent; Z86.73 Personal history of transient ischemic attack (TIA), and cerebral infarction without residual deficits; Z98.51 Tubal ligation status; Y90.7 Blood alcohol level of 200-239 mg/100 ml
CPT/HCPCS: 80306; 82075; 99284

== ENCOUNTER → 2021-09-09 | Outpatient (CLI) | payer OTHER ==
--- NOTE | 2021-09-09 13:54 | US ---
EXAMINATION TYPE: US transvaginal DATE OF EXAM: 09/09/2021 COMPARISON: CT abdomen and pelvis June 27, 2020 CLINICAL HISTORY: R10.2 pelvic pain. Pt states generalized pelvic pain TECHNIQUE: Transvaginal (TV). Transvaginal sonographic images of the pelvis were acquired. Pt was not given prep to fill bladder for TA Date of LMP: 08/25/2021 EXAM MEASUREMENTS: Uterus: 8.8 x 4.3 x 4.2 cm Endometrial Stripe: 0.7 cm Right Ovary: 2.3 x 1.2 x 1.9 cm Left Ovary: 2.8 x 1.4 x 2.8 cm 1. Uterus: Anteverted Heterogeneous 2. Endometrium: wnl, with calcifications 3. Right Ovary: wnl 4. Left Ovary: Dominant follicle= 1.3 cm 5. Bilateral Adnexa: wnl 6. Posterior cul-de-sac: wnl Heterogeneous anteverted uterus. Endometrium within normal limits in thickness as patient is premenop ausal. Few adjacent punctate dystrophic calcifications are present. No free fluid. Both ovaries symmetric and normal in size. No suspicious extraovarian adnexal masses. IMPRESSION: No suspicious finding to account for patients with pelvic pain.
== END | disposition home or self-care (01) ==
LOC: RADUSWWP 12:42
PROVIDERS: ATTEND Family Medicine
DX: R10.2 Pelvic and perineal pain (principal)
CPT/HCPCS: 76830

== ENCOUNTER 2021-09-13 09:58 | Emergency (ER) | payer OTHER ==
[2021-09-13] MEDS ORDERED: SODIUM CHLORIDE 0.9% 1,000 ML IV STA (10:30)
[2021-09-13 11:01] LABS: Anisocytosis Slight; HCT 37.8 % (34.0-46.0); HGB 12.4 gm/dL (11.4-16.0); MCH 28.5 pg (25.0-35.0); MCHC 32.7 g/dL (31.0-37.0); MCV 87.2 fL (80.0-100.0); Mean Platelet Volume 10.6; RBC 4.33 m/uL (3.80-5.40); WBC 15.5 k/uL (3.8-10.6)
[2021-09-13 11:11] LABS: Appearance,Urine Clear (Clear); Bilirubin,Urine Negative (Negative); Blood,Urine Negative (Negative); Color,Urine Light Yellow; Glucose,Urine (UA) Negative (Negative); Ketones,Urine Negative (Negative); Leukocyte Esterase,Urine Negative (Negative); Nitrite,Urine Negative (Negative); PH, Urine 6.5 (5.0-8.0); Protein,Urine Negative (Negative); Urobilinogen,Urine <2.0 mg/dL (<2.0)
--- NOTE | 2021-09-13 11:14 | XR ---
EXAMINATION TYPE: XR chest 2V DATE OF EXAM: 09/13/2021 COMPARISON: 02/12/2021 HISTORY: 51-year-old female with cough and chest pain TECHNIQUE: PA and lateral views FINDINGS: Heart normal size. Aorta and pulmonary vasculature within normal limits. Some strandy atelectasis at the left base. Hyperinflation. No ryan consolidation or pleural effusion. IMPRESSION: COPD. No definite acute process.
[2021-09-13 11:23] LABS: ALT 14 U/L (4-34); AST 21 U/L (14-36); African American GFR (CKD) >90 (>60 ml/min/1.73 sqM); Albumin 4.3 g/dL (3.5-5.0); Alkaline Phosphatase 46 U/L (38-126); Amylase 67 U/L (30-110); Anion Gap 8 mmol/L; Blood Urea Nitrogen 8 mg/dL (7-17); Carbon Dioxide 24 mmol/L (22-30); Chloride 104 mmol/L (98-107); Glucose 97 mg/dL (74-99); Lipase 88 U/L (23-300); Non-African American GFR(CKD) >90 (>60 ml/min/1.73 sqM); Potassium 4.5 mmol/L (3.5-5.1); Sodium 136 mmol/L (137-145); Total Bilirubin 0.4 mg/dL (0.2-1.3); Total Protein 7.2 g/dL (6.3-8.2)
--- NOTE | 2021-09-13 12:18 | US ---
EXAMINATION TYPE: US gallbladder DATE OF EXAM: 09/13/2021 COMPARISON: NONE CLINICAL HISTORY: 51-year-old female RUQ pain. Chest pain, RUQ pain TECHNIQUE: Multiple sonographic images of the right upper quadrant are obtained. FINDINGS: EXAM MEASUREMENTS: Liver Length: 16.0 cm Gallbladder Wall: 0.1 cm CBD: 0.6 cm Right Kidney: 10.9 x 4.0 x 5.0 cm Pancreas: wnl Liver: wnl Gallbladder: wnl Evidence for sonographic Drummond's sign: no CBD: Upper limits of normal. Right Kidney: No hydronephrosis. IMPRESSION: 1. Bile duct upper limits of normal in caliber at 6 mm. This may be chronic for the patient. Correlat e with alkaline phosphatase and bilirubin levels. 2. No gallstones or evidence for acute cholecystitis.
--- NOTE | 2021-09-13 12:31 | ED ---
General Adult HPI - General Chief complaint: Upper Respiratory Infection Stated complaint: Cough, chest pain, back pain Time Seen by Provider: 09/13/21 10:14 Source: patient, RN notes reviewed, old records reviewed Mode of arrival: ambulatory Limitations: no limitations - History of Present Illness Initial comments: Patient is a 51-year-old female with past medical history remarkable for COPD, CVA, hypertension, who presents emergency department over concern for belly pain, cough, sore throat, congestion. Patient states that she was treated with a Z-Michael and is still on steroids, however is still having continued upper respiratory symptoms. She is concerned that she may have a pneumonia or other illness at this time. Patient was vaccinated for COVID-19. She denies any sick contacts. She denies any wheezing. She states she has a reduced appetite. She is also complaining of intermittent right upper quadrant abdominal discomfort. It is sometimes worse when she eats. She has no history of gallstones. Never had a cholecystectomy. Patient otherwise has no acute complaints at this time. She still thought her by mouth intake. She states she feels fine now but wants to make sure nothing else is going on. - Related Data Home Medications Medication Instructions Recorded Confirmed Metoprolol Succinate (ER) [Toprol 50 mg PO DAILY 05/26/15 09/13/21 XL] Montelukast Sodium [Singulair] 10 mg PO DAILY 09/30/18 09/13/21 Rivaroxaban [Xarelto] 20 mg PO W/SUPPER 09/30/18 09/13/21 Gabapentin [Neurontin] 300 mg PO TID 11/07/19 09/13/21 traMADol HCL 50 mg PO QID PRN 11/07/19 09/13/21 Albuterol Sulfate [Proair Hfa] 2 puff INHALATION RT-Q6H PRN 08/11/21 09/13/21 Atorvastatin [Lipitor] 40 mg PO DAILY 08/11/21 09/13/21 Butalb/APAP/Caff 50-325-40Mg 1 tab PO DAILY PRN 08/11/21 09/13/21 [Fioricet 50-325-40] Clindamycin Topical Soln 1 applic TOPICAL BID PRN 08/11/21 09/13/21 [Cleocin-T Topical Soln] FLUoxetine HCL 80 mg PO DAILY 08/11/21 09/13/21 Omeprazole 20 mg PO DAILY 08/11/21 09/13/21 Budesonide-Formot 160-4.5 Mcg 2 puff INHALATION RT-BID 09/13/21 09/13/21 [Symbicort 160-4.5 Mcg Inhaler] Topiramate [Topamax] 25 mg PO DAILY 09/13/21 09/13/21 buPROPion HCL [Wellbutrin XL] 300 mg PO DAILY 09/13/21 09/13/21 predniSONE See Taper PO DAILY 09/13/21 09/13/21 Allergies Allergy/AdvReac Type Severity Reaction Status Date / Time hydrocodone Allergy RASH/"OUT Verified 09/13/21 11:46 OF IT FOR SEVERAL DAYS" Review of Systems ROS Statement: Those systems with pertinent positive or pertinent negative responses have been documented in the HPI. Review of Systems: CONST: Denies fever EYES: Denies blurry vision ENT: Endorses nasal congestion C/V: Denies Chest pain RESP: Denies shortness of breath GI: Endorses right upper quadrant abdominal discomfort : Denies dysuria SKIN: Denies rash. MSK: Denies joint pain. NEURO: Denies headache ROS Other: All systems not noted in ROS Statement are negative. 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 Past Psychological History: PTSD Smoking Status: Current every day smoker Past Alcohol Use History: Occasional Past Drug Use History: None Reported General Exam - General Exam Comments Initial Comments: General: Appears in no acute distress. HEAD: Normal with no signs of head trauma. EYES: PERRLA, EOMI, conjunctiva normal, no discharge. ENT: Hearing grossly intact, normal oropharynx. Active rhinorrhea. RESPIRATORY: Clear breath sounds bilaterally. No wheezes, rales, or rhonchi. C/V: Regular rate and rhythm. S1 and S2 auscultated, no edema, peripheral pulses 2+ and intact throughout ABD: Abdomen is soft, nondistended. Patient is mildly tender palpation isolated in the right upper quadrant. Drummond sign is negative. No rebound tenderness or peritoneal signs. EXT: Normal range of motion, no obvious deformity SKIN: No rashes or lesions observed on exposed skin. NEURO: Alert and oriented 4. Limitations: no limitations Course Vital Signs 09/13/21 09/13/21 09/13/21 10:09 10:48 11:55 Temperature 98.2 F Pulse Rate 70 94 Respiratory 18 18 18 Rate Blood Pressure 134/78 132/88 O2 Sat by Pulse 93 L 97 Oximetry 09/13/21 12:50 Temperature 98.1 F Pulse Rate 91 Respiratory 17 Rate Blood Pressure 131/78 O2 Sat by Pulse 99 Oximetry Medical Decision Making - Medical Decision Making Based on the patient's presentation and physical exam, I'm concerned for possible infectious etiology for her current symptoms. We will obtain a chest x-ray to rule out possibility of pneumonia, Covid swab, as well as abdominal laboratory studies due to the right upper quadrant abdominal discomfort. Ultrasound of the gallbladder as well as chest x-ray will be obtained. EKG will also be obtained of the screening test. She was in agreement this plan. She refuses any analgesia or nausea medications at this time as she states she otherwise feels fine. She'll be given a 1 L fluid bolus while she waits. EKG shows no signs of acute ischemia. Chest x-ray reveals no acute cardiopulmonary process. We'll let her ultrasound shows possibly a dilated bile duct of 6 mm, however when correlated with the patient's laboratory studies, I believe this is likely chronic for the patient. There is no gallstones or evidence for acute cholecystitis. Laboratory studies are remarkable for a mild leukocytosis of 15.5 which could be reactive secondary to her current steroid use. Remainder of her labs are unremarkable. Covid is negative. On reevaluation, patient is feeling improved. We did discuss the results of laboratory studies and imaging. I do believe it is safer to be discharged home with follow-up with her primary care physician. She was in agreement this plan. She does not require any medications for home. I advised that she continue her course of prednisone that she is on. I instructed the patient to follow up with their PCP in the next 3 days. I explained that the patient should return to the emergency department if they experience any worsening symptoms. Strict return precautions were discussed with the patient. The patient expressed understanding of these instructions. I answered all questions that the patient had. The patient was discharged home in good condition with their prescriptions and follow up information. - Lab Data Result diagrams: 09/13/21 10:44 09/13/21 10:44 Lab Results 09/13/21 09/13/21 09/13/21 Range/Units 10:44 10:44 10:44 WBC 15.5 H (3.8-10.6) k/uL RBC 4.33 (3.80-5.40) m/uL Hgb 12.4 (11.4-16.0) gm/dL Hct 37.8 (34.0-46.0) % MCV 87.2 (80.0-100.0) fL MCH 28.5 (25.0-35.0) pg MCHC 32.7 (31.0-37.0) g/dL RDW 16.0 H (11.5-15.5) % Plt Count (150-450) k/uL MPV 10.6 Neutrophils % (Manual) 87 % Lymphocytes % (Manual) 9 % Monocytes % (Manual) 4 % Neutrophils # (Manual) 13.49 H (1.3-7.7) k/uL Lymphocytes # (Manual) 1.40 (1.0-4.8) k/uL Monocytes # (Manual) 0.62 (0-1.0) k/uL Nucleated RBCs 0 (0-0) /100 WBC Manual Slide Review Performed Anisocytosis Slight Sodium (137-145) mmol/L Potassium (3.5-5.1) mmol/L Chloride (98-107) mmol/L Carbon Dioxide (22-30) mmol/L Anion Gap mmol/L BUN (7-17) mg/dL Creatinine (0.52-1.04) mg/dL Est GFR (CKD-EPI)AfAm (>60 ml/min/1.73 sqM) Est GFR (CKD-EPI)NonAf (>60 ml/min/1.73 sqM) Glucose (74-99) mg/dL Calcium (8.4-10.2) mg/dL Total Bilirubin (0.2-1.3) mg/dL AST (14-36) U/L ALT (4-34) U/L Alkaline Phosphatase (38-126) U/L Total Protein (6.3-8.2) g/dL Albumin (3.5-5.0) g/dL Amylase (30-110) U/L Lipase (23-300) U/L Urine Color Light Yellow Urine Appearance Clear (Clear) Urine pH 6.5 (5.0-8.0) Ur Specific [place] 1.000 L (1.001-1.035) Urine Protein Negative (Negative) Urine Glucose (UA) Negative (Negative) Urine Ketones Negative (Negative) Urine Blood Negative (Negative) Urine Nitrite Negative (Negative) Urine Bilirubin Negative (Negative) Urine Urobilinogen <2.0 (<2.0) mg/dL Ur Leukocyte Esterase Negative (Negative) Coronavirus (PCR) Not Detected (Not Detectd) 09/13/21 Range/Units 10:44 WBC (3.8-10.6) k/uL RBC (3.80-5.40) m/uL Hgb (11.4-16.0) gm/dL Hct (34.0-46.0) % MCV (80.0-100.0) fL MCH (25.0-35.0) pg MCHC (31.0-37.0) g/dL RDW (11.5-15.5) % Plt Count (150-450) k/uL MPV Neutrophils % (Manual) % Lymphocytes % (Manual) % Monocytes % (Manual) % Neutrophils # (Manual) (1.3-7.7) k/uL Lymphocytes # (Manual) (1.0-4.8) k/uL Monocytes # (Manual) (0-1.0) k/uL Nucleated RBCs (0-0) /100 WBC Manual Slide Review Anisocytosis Sodium 136 L (137-145) mmol/L Potassium 4.5 (3.5-5.1) mmol/L Chloride 104 (98-107) mmol/L Carbon Dioxide 24 (22-30) mmol/L Anion Gap 8 mmol/L BUN 8 (7-17) mg/dL Creatinine 0.60 (0.52-1.04) mg/dL Est GFR (CKD-EPI)AfAm >90 (>60 ml/min/1.73 sqM) Est GFR (CKD-EPI)NonAf >90 (>60 ml/min/1.73 sqM) Glucose 97 (74-99) mg/dL Calcium 10.0 (8.4-10.2) mg/dL Total Bilirubin 0.4 (0.2-1.3) mg/dL AST 21 (14-36) U/L ALT 14 (4-34) U/L Alkaline Phosphatase 46 (38-126) U/L Total Protein 7.2 (6.3-8.2) g/dL Albumin 4.3 (3.5-5.0) g/dL Amylase 67 (30-110) U/L Lipase 88 (23-300) U/L Urine Color Urine Appearance (Clear) Urine pH (5.0-8.0) Ur Specific [place] (1.001-1.035) Urine Protein (Negative) Urine Glucose (UA) (Negative) Urine Ketones (Negative) Urine Blood (Negative) Urine Nitrite (Negative) Urine Bilirubin (Negative) Urine Urobilinogen (<2.0) mg/dL Ur Leukocyte Esterase (Negative) Coronavirus (PCR) (Not Detectd) - EKG Data -: EKG Interpreted by Me EKG Comments: 12-lead Electrocardiogram Interpretation Note EKG was reviewed and interpreted by myself. 12-lead ECG performed at 1031 is interpreted by me as revealing normal sinus rhythm at a rate of 68 beats per minute. [place] is normal. [place] interval is 194 ms, QRS duration is 80 ms, QTc is 425 ms.. There were no ST or T wave abnormalities to suggest myocardial ischemia or injury. R wave progression across the precordium was satisfactory. By my interpretation this EKG is non-diagnostic for acute ischemia. Disposition Clinical Impression: Acute viral syndrome Disposition: HOME SELF-CARE Condition: Good Instructions (If sedation given, give patient instructions): Upper Respiratory Infection (ED) Is patient prescribed a controlled substance at d/c from ED?: No Referrals: Grecia Paulino III, MD [Primary Care Provider] - 1-2 days
[2021-09-13 12:37] LABS: Monocytes # (M) 0.62 k/uL (0-1.0); Neutrophils # (M) 13.49 k/uL (1.3-7.7); Neutrophils % (M) 87 %; Nucleated Red Blood Cells 0 /100 WBC (0-0); Total Cells Counted 100
[2021-09-13 12:51] VITALS: BP 131/78; PULSE 91; RESP 17; TEMP 98.1
== END 2021-09-13 12:51 | disposition home or self-care (01) ==
LOC: EC 09:58
DX: B34.9 Viral infection, unspecified (principal); J44.9 Chronic obstructive pulmonary disease, unspecified; I10 Essential (primary) hypertension; F17.200 Nicotine dependence, unspecified, uncomplicated; F43.12 Post-traumatic stress disorder, chronic; Z88.5 Allergy status to narcotic agent; Z86.73 Personal history of transient ischemic attack (TIA), and cerebral infarction without residual deficits; Z98.51 Tubal ligation status; Z20.822 Contact with and (suspected) exposure to COVID-19
CPT/HCPCS: 36415; 71046; 76705; 80053; 81003; 82150; 83690; 85025; 87635; 93005; 99284

== ENCOUNTER → 2021-09-30 | Outpatient (CLI) | payer OTHER ==
--- NOTE | 2021-10-01 10:55 | MM ---
Reason for exam: additional evaluation requested from prior study. Last mammogram was performed 2 years and 10 months ago. History: Family history of breast cancer in sister at age 48. Physical Findings: Nurse Summary: multiple bilateral palpables, all soft, movable (nurse ts). MG Diagnostic Mammo w CAD MAX Bilateral CC and MLO view(s) were taken. XCCL view(s) were taken of the right breast. Prior study comparison: December 08, 2018, right breast MG work up mamm w CAD RT. August 17, 2018, bilateral MG diagnostic mammo w CAD MAX. The breast tissue is heterogeneously dense. This may lower the sensitivity of mammography. There are benign appearing diffuse round calcifications bilaterally. These results were verbally communicated with the patient and result sheet given to the patient on ASSESSMENT: Incomplete: need additional imaging evaluation, BI-RAD 0 RECOMMENDATION: Ultrasound of both breasts. (dense tissue palpable bilaterally)
--- NOTE | 2021-10-01 11:04 | USB ---
Reason for exam: additional evaluation requested from abnormal screening. History: Family history of breast cancer in sister at age 48. US Breast Limited BILAT Right limited breast ultrasound including focal area of concern, retroareolar and axilla demonstrates a 0.4 x 0.4 x 0.3cm cystic lesion at 11 o'clock. Left limited breast ultrasound including focal area of concern, retroareolar and axilla demonstrates a 0.7 x 0.8 x 0.7cm mixed lesion at 12 o'clock, suspect debris filled cyst and a 0.8 x 0.7 x 0.4cm cystic lesion at 3 o'clock. These results were verbally communicated with the patient and result sheet given to the patient on 09/30/21. ASSESSMENT: Benign, BI-RAD 2 RECOMMENDATION: Routine screening mammogram of both breasts in 1 year.
== END | disposition home or self-care (01) ==
LOC: RADMAMWWP 14:10
PROVIDERS: ATTEND Family Medicine
DX: R92.8 Other abnormal and inconclusive findings on diagnostic imaging of breast (principal); Z80.3 Family history of malignant neoplasm of breast
CPT/HCPCS: 77066

== ENCOUNTER 2021-10-10 09:54 | Day surgery (SDC) | payer OTHER ==
[2021-10-08 15:14] VITALS: BMI 25.2
[2021-10-10 10:20] VITALS: TEMP 98
[2021-10-10] MEDS ORDERED: LACTATED RINGERS 1,000 ML IV ONE (10:31)
[2021-10-10] MEDS ORDERED: PROPOFOL 10 MG/ML 20 ML VIAL IV ONE (11:44)
[2021-10-10] MEDS ORDERED: LIDOCAINE 1% INJ 10MG/ML (20 ML MDV) ONE (11:44)
--- NOTE | 2021-10-10 12:04 | P.PCN ---
Date of Procedure: 10/10/21 Procedure(s) Performed: tBrief history: Patient is a pleasant 51-year-old white female scheduled for an elective upper endoscopy as well as colonoscopy as a part of evaluation of upper abdominal pain and long-standing history of GERD. She has the symptoms on and off for the last several months duration. Presently on omeprazole 20 mg daily. She is scheduled for a colonoscopy as a part of screening for colorectal neoplasia Procedure performed: Esophagogastroduodenoscopy with biopsy Colonoscopy Preoperative diagnosis: Epigastric pain Screening for colon cancer Anesthesia: MAC Procedure: After informed consent was obtained from the patient was brought into the endoscopy unit and IV sedation was administered by anesthesia under continuous monitoring. Initially upper endoscopy was done. The Olympus GF 160 video endoscope was inserted inserted into the mouth and esophagus intubated without a ny difficulty and was gradually advanced into the stomach and duodenum and carefully examined. The bulb and second part of the duodenum appeared normal. The scope was then withdrawn into the stomach adequately insufflated with air and upon careful examination the antrum had mild mottling of the mucosa and biopsies were done from this area. The body, cardia and fundus appeared normal. The scope was then withdrawn into the esophagus. The GE junction was located at 40 cm to the incisors. Small sliding type hiatal hernia noted. It appeared irregular with no erythema erosions or ulcerations. Rest of the esophagus appeared normal. Patient tolerated the procedure well. At this time the patient continued to remain sedation. Initial digital rectal examination was normal. Olympus CF 160 video colonoscope was then inserted into the rectum and gradually advanced to the cecum without any difficulty. Careful examination was performed as the scope was gradually being withdrawn. The prep was excellent. The cecum, ascending colon, transverse colon, descending colon, sigmoid colon and rectum appeared normal. Retroflexion was performed in the rectum and no lesions were noted. Patient tolerated the procedure well. Impression: 1. Upper Endoscopy revealed small hiatal hernia and mild antral gastritis 2. Colonoscopy wasnormal limits with no evidence of colorectal neoplasia Recommendations: Findings of this examination were discussed with the patient as well as her family. She was advised to follow with the biopsy results. Recommended to increase omeprazole 20 mg twice daily and follow antireflux measures. She can have a repeat screening colonoscopy in 10 years.
[2021-10-10 12:13] VITALS: RESP 16
[2021-10-10 12:32] VITALS: BP 112/68; PULSE 58
[2021-10-10] MEDS ORDERED: LACTATED RINGERS 1,000 ML IV SCH (12:34)
== END 2021-10-10 13:03 | disposition home or self-care (01) ==
LOC: ORWHC2ENDO 09:54
PROVIDERS: ATTEND Internal Medicine Gastroenterology
DX: K29.50 Unspecified chronic gastritis without bleeding (principal); Z12.11 Encounter for screening for malignant neoplasm of colon; K44.9 Diaphragmatic hernia without obstruction or gangrene; K21.9 Gastro-esophageal reflux disease without esophagitis; E78.5 Hyperlipidemia, unspecified; F32.9 Major depressive disorder, single episode, unspecified; J44.9 Chronic obstructive pulmonary disease, unspecified; Z79.899 Other long term (current) drug therapy; Z79.01 Long term (current) use of anticoagulants
CPT/HCPCS: 81025; 88305; 43239; J2001; J2704; G0121

== ENCOUNTER 2022-01-13 12:23 | Emergency (ER) | payer OTHER ==
[2022-01-13 12:34] VITALS: BP 128/87; PULSE 69; RESP 18; TEMP 97.3
[2022-01-13] MEDS ORDERED: SODIUM CHLORIDE 0.9% 500 ML 500 ML IV ONE (13:28)
[2022-01-13] MEDS ORDERED: ACETAMINOPHEN TAB 500 MG TAB PO STA (13:30)
[2022-01-13 14:03] LABS: Basophils % (A) 0 %; Eosinophils # (A) 0.1 k/uL (0-0.7); Eosinophils % (A) 1 %; HCT 38.3 % (34.0-46.0); HGB 12.5 gm/dL (11.4-16.0); Lymphocytes # (A) 1.7 k/uL (1.0-4.8); Lymphocytes % (A) 25 %; MCH 30.3 pg (25.0-35.0); MCHC 32.5 g/dL (31.0-37.0); Mean Platelet Volume 9.3; Monocytes # (A) 0.5 k/uL (0-1.0); Monocytes % (A) 8 %; Neutrophils # (A) 4.3 k/uL (1.3-7.7); Neutrophils % (A) 64 %; Platelet Count 250 k/uL (150-450); RBC 4.12 m/uL (3.80-5.40); RDW 14.9 % (11.5-15.5); WBC 6.7 k/uL (3.8-10.6)
--- NOTE | 2022-01-13 14:03 | ED ---
General Adult HPI - General Chief complaint: Vaginal Bleeding Stated complaint: Vaginal bleeding Time Seen by Provider: 01/13/22 12:56 Source: patient Mode of arrival: ambulatory Limitations: no limitations - History of Present Illness Initial comments: This 51-year-old female with a past medical history of factor V Leiden, on Xarelto, presents to the emergency Department with vaginal bleeding 2 weeks. Patient states she was sent here after calling her primary care provider who stated that patient need to be assessed for her bleeding. Patient states she was having her normal menstrual cycle up until 3 months ago. Patient states 3 months ago her menstrual cycle stopped and she experienced no bleeding for the last 3 months up until 2 weeks ago when the bleeding began again. She states she weeks ago she can have vaginal bleeding and thought it was just her normal cycle, however her normal menstrual cycle usually only lasts between 5 and 7 days. Patient states she has bled every day for the last 2 weeks and states over the last week there has been clots present. Patient states she has been changing her pad about once an hour for the last week. Patient states she does also experience some cramping but denies any abdominal pain, nausea, vomiting or change in bowel or bladder. Patient denies being sexually active and states there is no way that she is . Patient denies any chest pain, fever, shortness of breath, abdominal pain, hemoptysis, change in bowel or bladder, headache, lightheadedness, dizziness, change in vision, weakness. - Related Data Home Medications Medication Instructions Recorded Confirmed Metoprolol Succinate (ER) [Toprol 50 mg PO DAILY 05/26/15 01/13/22 XL] Montelukast Sodium [Singulair] 10 mg PO DAILY 09/30/18 01/13/22 Rivaroxaban [Xarelto] 20 mg PO W/SUPPER 09/30/18 01/13/22 Gabapentin [Neurontin] 300 mg PO TID 11/07/19 01/13/22 traMADol HCL 50 mg PO QID PRN 11/07/19 01/13/22 Albuterol Sulfate [Proair Hfa] 2 puff INHALATION RT-Q6H PRN 08/11/21 01/13/22 Atorvastatin [Lipitor] 40 mg PO DAILY 08/11/21 01/13/22 FLUoxetine HCL 80 mg PO DAILY 08/11/21 01/13/22 Omeprazole 20 mg PO DAILY 08/11/21 01/13/22 Budesonide-Formot 160-4.5 Mcg 2 puff INHALATION RT-BID 09/13/21 01/13/22 [Symbicort 160-4.5 Mcg Inhaler] Topiramate [Topamax] 50 mg PO DAILY 09/13/21 01/13/22 buPROPion HCL [Wellbutrin XL] 300 mg PO DAILY 09/13/21 01/13/22 Ondansetron [Zofran] 4 mg PO Q8HR PRN 10/08/21 01/13/22 Allergies Allergy/AdvReac Type Severity Reaction Status Date / Time hydrocodone AdvReac AMS Verified 01/13/22 14:18 Review of Systems ROS Statement: Those systems with pertinent positive or pertinent negative responses have been documented in the HPI. ROS Other: All systems not noted in ROS Statement are negative. 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 History of Any Multi-Drug Resistant Organisms: None Reported Past Surgical History: Tubal Ligation Additional Past Surgical History / Comment(s): colonoscopy Past Anesthesia/Blood Transfusion Reactions: Previous Problems w/ Anesthesia, Postoperative Nausea & Vomiting (PONV) Additional Past Anesthesia/Blood Transfusion Reaction / Comment(s): Pt has a long period of time coming out of it and "freaks" out. Past Psychological History: Anxiety, Depression, PTSD Smoking Status: Former smoker Past Alcohol Use History: None Reported Past Drug Use History: None Reported General Exam Limitations: no limitations General appearance: alert, in no apparent distress Head exam: Present: atraumatic, normocephalic, normal inspection Eye exam: Present: normal appearance, PERRL, EOMI. Absent: scleral icterus, conjunctival injection, periorbital swelling Pupils: Present: normal accommodation ENT exam: Present: normal exam, mucous membranes moist Neck exam: Present: normal inspection, full ROM. Absent: tenderness Respiratory exam: Present: normal lung sounds bilaterally. Absent: respiratory distress, wheezes, rales, rhonchi, stridor, chest wall tenderness Cardiovascular Exam: Present: regular rate, normal rhythm, normal heart sounds. Absent: systolic murmur, diastolic murmur, rubs, gallop, clicks GI/Abdominal exam: Present: soft, normal bowel sounds. Absent: distended, tenderness, guarding, rebound, rigid External exam: Present: other (Patient did refuse external and speculum exam) Speculum exam: Present: other (Patient did refuse external and speculum exam and stated that she would just prefer transvaginal ultrasound in to be seen by her primary care provider for pelvic exam.) Extremities exam: Present: normal inspection, full ROM, normal capillary refill. Absent: tenderness, pedal edema, joint swelling, calf tenderness Back exam: Present: normal inspection, full ROM. Absent: CVA tenderness (R), CVA tenderness (L), paraspinal tenderness, vertebral tenderness Neurological exam: Present: alert, oriented X3, CN II-XII intact Psychiatric exam: Present: normal affect, normal mood Skin exam: Present: warm, dry, intact, normal color. Absent: rash Course Vital Signs 01/13/22 12:32 Temperature 97.3 F L Pulse Rate 69 Respiratory 18 Rate Blood Pressure 128/87 O2 Sat by Pulse 98 Oximetry Medical Decision Making - Medical Decision Making This 51-year-old female presents emergency Department with vaginal bleeding that began 2 weeks ago. Labs with hemoglobin 12.5, hematocrit 38.3, PT 10.7, INR 1.0, APTT 30.7, urine without nitrites. Red blood cells 109. Urine hCG not detected. Transvaginal ultrasound impression: Heterogenous-appearing endometrium with reasonably bloody products. Appropriate color flow and spectra waveforms bilaterally. I did call ultrasound who stated that gradually disappearing endometrium is commonly seen in bleeding patients and stated it is usually followed up outpatient. Patient instructed to call her primary care or [facility] tomorrow morning. Strict return precautions were discussed in detail. Patient verbally agreed to plan. Patient sent home in stable condition. Case discussed with my attending, Dr. Fernandez. - Lab Data Result diagrams: 01/13/22 13:51 01/13/22 13:51 Lab Results 01/13/22 01/13/22 01/13/22 Range/Units 13:39 13:39 13:51 WBC 6.7 (3.8-10.6) k/uL RBC 4.12 (3.80-5.40) m/uL Hgb 12.5 (11.4-16.0) gm/dL Hct 38.3 (34.0-46.0) % MCV 93.0 (80.0-100.0) fL MCH 30.3 (25.0-35.0) pg MCHC 32.5 (31.0-37.0) g/dL RDW 14.9 (11.5-15.5) % Plt Count 250 (150-450) k/uL MPV 9.3 Neutrophils % 64 % Lymphocytes % 25 % Monocytes % 8 % Eosinophils % 1 % Basophils % 0 % Neutrophils # 4.3 (1.3-7.7) k/uL Lymphocytes # 1.7 (1.0-4.8) k/uL Monocytes # 0.5 (0-1.0) k/uL Eosinophils # 0.1 (0-0.7) k/uL Basophils # 0.0 (0-0.2) k/uL PT (9.0-12.0) sec INR (<1.2) APTT (22.0-30.0) sec Sodium (137-145) mmol/L Potassium (3.5-5.1) mmol/L Chloride (98-107) mmol/L Carbon Dioxide (22-30) mmol/L Anion Gap mmol/L BUN (7-17) mg/dL Creatinine (0.52-1.04) mg/dL Est GFR (CKD-EPI)AfAm (>60 ml/min/1.73 sqM) Est GFR (CKD-EPI)NonAf (>60 ml/min/1.73 sqM) Glucose (74-99) mg/dL Calcium (8.4-10.2) mg/dL Total Bilirubin (0.2-1.3) mg/dL AST (14-36) U/L ALT (4-34) U/L Alkaline Phosphatase (38-126) U/L Total Protein (6.3-8.2) g/dL Albumin (3.5-5.0) g/dL Urine Color Yellow Urine Appearance Cloudy H (Clear) Urine pH 8.0 (5.0-8.0) Ur Specific [place] 1.010 (1.001-1.035) Urine Protein Negative (Negative) Urine Glucose (UA) Negative (Negative) Urine Ketones Negative (Negative) Urine Blood Large H (Negative) Urine Nitrite Negative (Negative) Urine Bilirubin Negative (Negative) Urine Urobilinogen <2.0 (<2.0) mg/dL Ur Leukocyte Esterase Negative (Negative) Urine RBC 109 H (0-5) /hpf Urine WBC 5 (0-5) /hpf Ur Squamous Epith Cells <1 (0-4) /hpf Urine Bacteria Rare H (None) /hpf Urine HCG, Qual Not Detected (Not Detectd) Blood Type Blood Type Recheck Bld Type Recheck Status Antibody Screen Spec Expiration Date 01/13/22 01/13/22 01/13/22 Range/Units 13:51 13:51 13:51 WBC (3.8-10.6) k/uL RBC (3.80-5.40) m/uL Hgb (11.4-16.0) gm/dL Hct (34.0-46.0) % MCV (80.0-100.0) fL MCH (25.0-35.0) pg MCHC (31.0-37.0) g/dL RDW (11.5-15.5) % Plt Count (150-450) k/uL MPV Neutrophils % % Lymphocytes % % Monocytes % % Eosinophils % % Basophils % % Neutrophils # (1.3-7.7) k/uL Lymphocytes # (1.0-4.8) k/uL Monocytes # (0-1.0) k/uL Eosinophils # (0-0.7) k/uL Basophils # (0-0.2) k/uL PT 10.7 (9.0-12.0) sec INR 1.0 (<1.2) APTT 30.7 H (22.0-30.0) sec Sodium 136 L (137-145) mmol/L Potassium 4.2 (3.5-5.1) mmol/L Chloride 106 (98-107) mmol/L Carbon Dioxide 23 (22-30) mmol/L Anion Gap 7 mmol/L BUN 9 (7-17) mg/dL Creatinine 0.67 (0.52-1.04) mg/dL Est GFR (CKD-EPI)AfAm >90 (>60 ml/min/1.73 sqM) Est GFR (CKD-EPI)NonAf >90 (>60 ml/min/1.73 sqM) Glucose 102 H (74-99) mg/dL Calcium 9.2 (8.4-10.2) mg/dL Total Bilirubin 0.5 (0.2-1.3) mg/dL AST 24 (14-36) U/L ALT 13 (4-34) U/L Alkaline Phosphatase 53 (38-126) U/L Total Protein 7.4 (6.3-8.2) g/dL Albumin 4.2 (3.5-5.0) g/dL Urine Color Urine Appearance (Clear) Urine pH (5.0-8.0) Ur Specific [place] (1.001-1.035) Urine Protein (Negative) Urine Glucose (UA) (Negative) Urine Ketones (Negative) Urine Blood (Negative) Urine Nitrite (Negative) Urine Bilirubin (Negative) Urine Urobilinogen (<2.0) mg/dL Ur Leukocyte Esterase (Negative) Urine RBC (0-5) /hpf Urine WBC (0-5) /hpf Ur Squamous Epith Cells (0-4) /hpf Urine Bacteria (None) /hpf Urine HCG, Qual (Not Detectd) Blood Type O Positive Blood Type Recheck O Pos Bld Type Recheck Status No Antibody Screen NEGATIVE Spec Expiration Date 01/16/20222350 - Radiology Data Radiology results: report reviewed, image reviewed Disposition Clinical Impression: Dysfunctional uterine bleeding Disposition: HOME SELF-CARE Condition: Stable Instructions (If sedation given, give patient instructions): Dysmenorrhea (ED) Additional Instructions: Please return to the emergency department with any new, worsening, or concerning symptoms. Please follow up with your primary care provider or [facility] in next 24- 48 hours Is patient prescribed a controlled substance at d/c from ED?: No Referrals: Grecia Paulino III, MD [Primary Care Provider] - 1-2 days Time of Disposition: 17:08
[2022-01-13 14:15] LABS: ALT 13 U/L (4-34); AST 24 U/L (14-36); African American GFR (CKD) >90 (>60 ml/min/1.73 sqM); Albumin 4.2 g/dL (3.5-5.0); Alkaline Phosphatase 53 U/L (38-126); Anion Gap 7 mmol/L; Blood Urea Nitrogen 9 mg/dL (7-17); Calcium 9.2 mg/dL (8.4-10.2); Carbon Dioxide 23 mmol/L (22-30); Chloride 106 mmol/L (98-107); Glucose 102 mg/dL (74-99); Non-African American GFR(CKD) >90 (>60 ml/min/1.73 sqM); Potassium 4.2 mmol/L (3.5-5.1); Sodium 136 mmol/L (137-145); Total Bilirubin 0.5 mg/dL (0.2-1.3); Total Protein 7.4 g/dL (6.3-8.2)
[2022-01-13 14:15] LABS: Appearance,Urine Cloudy (Clear); Bacteria,Urine Rare /hpf; Bilirubin,Urine Negative (Negative); Blood,Urine Large (Negative); Color,Urine Yellow; Glucose,Urine (UA) Negative (Negative); Ketones,Urine Negative (Negative); Leukocyte Esterase,Urine Negative (Negative); Nitrite,Urine Negative (Negative); Protein,Urine Negative (Negative); RBC,Urine 109 /hpf (0-5); Squamous Epithelial Cell,Urine <1 /hpf (0-4); Urobilinogen,Urine <2.0 mg/dL (<2.0); WBC,Urine 5 /hpf (0-5)
[2022-01-13 14:19] LABS: Partial Thromboplastin Time 30.7 sec (22.0-30.0); Prothrombin Time 10.7 sec (9.0-12.0)
--- NOTE | 2022-01-13 16:47 | US ---
EXAMINATION TYPE: US transvaginal DATE OF EXAM: 01/13/2022 COMPARISON: Ultrasound 11/09/2020 CLINICAL HISTORY: bleeding after no menstrual cycle ?3 months. Heavy bleeding x 2 weeks. TECHNIQUE: Transvaginal (TV). Date of LMP: September 2021, EXAM MEASUREMENTS: Uterus: 8.0 x 3.7 x 4.2 cm Endometrial Stripe: 0.6 cm Right Ovary: 3.7 x 2.9 x 2.0 cm Left Ovary: 2.9 x 1.7 x 2.0 cm 1. Uterus: Anteverted wnl, area seen 2. Endometrium: Fluid visualized with internal echoes seen 3. Right Ovary: Dominant follicle 2.7 x 2.9 x 2.1 cm 4. Left Ovary: dominant follicle seen Spectral, color and waveform doppler imaging shows good arterial and venous flow within the ovaries ; there is no evidence for ovarian torsion. 5. Bilateral Adnexa: wnl 6. Posterior cul-de-sac: no free fluid IMPRESSION: 1. Heterogenous appearing endometrium with presumably blood products. 2. Appropriate color flow and spectral waveforms bilaterally.
== END 2022-01-13 17:48 | disposition home or self-care (01) ==
LOC: EC 12:23
DX: N93.8 Other specified abnormal uterine and vaginal bleeding (principal); I10 Essential (primary) hypertension; J44.9 Chronic obstructive pulmonary disease, unspecified; F32.A Depression, unspecified; F41.9 Anxiety disorder, unspecified; Z87.891 Personal history of nicotine dependence; Z79.01 Long term (current) use of anticoagulants; Z79.899 Other long term (current) drug therapy
CPT/HCPCS: 36415; 76830; 80053; 81001; 81025; 85025; 85610; 85730; 86850; 86900; 86901; 93975; 99284

== ENCOUNTER → 2022-03-24 | Outpatient (CLI) | payer OTHER ==
[2022-03-24 18:35] LABS: Basophils # (A) 0.04 X 10*3/uL (0.00-0.10); Basophils % (A) 0.5 %; Eosinophils # (A) 0.09 X 10*3/uL (0.04-0.35); Eosinophils % (A) 1.1 %; HCT 35.6 % (37.2-46.3); HGB 10.9 g/dL (12.0-15.0); Immature Grans, Automated 0.3 %; Lymphocytes # (A) 1.49 X 10*3/uL (0.90-5.00); Lymphocytes % (A) 18.8 %; MCH 26.8 pg (27.0-32.0); MCHC 30.6 g/dL (32.0-37.0); MCV 87.7 fL (80.0-97.0); Mean Platelet Volume 9.5 fL (9.5-12.2); Monocytes # (A) 0.73 X 10*3/uL (0.20-1.00); Monocytes % (A) 9.2 %; NRBC Per 100 WBC 0 /100 WBCS (0.0-0.0); Neutrophils # (A) 5.57 X 10*3/uL (1.80-7.70); Neutrophils % (A) 70.1 %; Platelet Count 144 X 10*3/uL (140-440); RBC 4.06 X 10*6/uL (4.10-5.20); RDW 16.6 % (11.5-14.5); WBC 7.94 X 10*3/uL (4.50-10.00)
== END | disposition home or self-care (01) ==
LOC: LABPAT 11:36
PROVIDERS: ATTEND Obstetrics & Gynecology Obstetrics
DX: Z01.812 Encounter for preprocedural laboratory examination (principal); N92.0 Excessive and frequent menstruation with regular cycle; I10 Essential (primary) hypertension
CPT/HCPCS: 85025; 93005

== ENCOUNTER 2022-03-25 12:34 | Day surgery (SDC) | payer OTHER ==
[~2022-03-25 12:34] MED LIST changes: +ALBUTEROL NEB (CONC) 2.5 MG/0.5 ML INHALATION ONE; +ATROPINE SULFATE 0.4 MG/ML 1 ML VIAL IM ONE; +LIDOCAINE 1% (10MG/ML) FOR IV START INTRADERMA PRN; -LIDOCAINE 1% 20 ML VIAL (10MG/ML) FOR IV START INTRADERMA PRN; +LIDOCAINE 2% (PF) 20 MG/ML 5 ML VIAL INHALATION ONE; +LIDOCAINE VISCOUS 300 MG/15 ML CUP MUCOUS MEM ONE
[2022-03-25 12:51] VITALS: TEMP 97.7
[2022-03-25] MEDS ORDERED: fentaNYL (PF) 50 MCG/ML 2 ML AMP ONE (13:06)
[2022-03-25] MEDS ORDERED: KETAMINE 10 MG/ML 20 ML VIAL ONE (13:06)
[2022-03-25] MEDS ORDERED: PROPOFOL 10 MG/ML 20 ML VIAL IV ONE (13:06)
[2022-03-25] MEDS ORDERED: MIDAZOLAM 2 MG/2 ML VIAL ONE (13:06)
[2022-03-25] MEDS ORDERED: GLYCOPYRROLATE 0.2 MG/ML 2 ML VIAL ONE (13:06)
[2022-03-25 13:30] VITALS: RESP 16
[2022-03-25 13:44] VITALS: BP 92/60; PULSE 81
--- NOTE | 2022-03-25 17:34 | PCN ---
PROCEDURE NOTE PULMONARY/CRITICAL CARE PROCEDURE NOTE: PROCEDURE: Bronchoscopy, airway examination, therapeutic lavage and BAL. OPERATORS: 1. Dr. Stiles. 2. Dr. Aragon. PREOPERATIVE DIAGNOSIS: Hoarseness and the sensation of something stuck in the patient's throat. POSTOPERATIVE DIAGNOSIS: Hoarseness and the sensation of something stuck in the patient's throat. PROCEDURE DESCRIPTION: There was informed consent and universal timeout. The patient's procedure took place in [facility], room #1. Anesthesia provided general anesthesia. After the patient was adequately sedated and being fully monitored, the bronchoscope was inserted through the left nostril. It passed through the left nasopharynx into the oropharynx. The hypopharynx was identified. The hypopharyngeal structures, including anterior commissure, true cords, false cords, piriform sinuses, right and left valleculae, epiglottis and arytenoids, all appeared normal. We did have the patient to phonate, saying the letter E, to see if the vocal cords functioned normally, and they did. Further topicalization was applied to the vocal cords. The patient was sedated a bit more heavily and the bronchoscope was pushed through the glottic opening into the trachea. The trachea itself appeared normal. The tracheal james was sharp. The right and left mainstem were topicalized. Next we did a thorough evaluation of the right upper lobe and its 3 segments, the right middle lobe and its 2 segments, the right lower lobe and its 5 segments, the left upper lobe proper and its 2 segments, the lingula and its 2 segments, and the left lower lobe and its 4 segments. Everything appeared to be relatively normal. There was no dominant mass or tumor. There was no bleeding. The mucosa appeared normal. There was no vascular engorgement. The bronchoscope was then wedged into the right middle lobe. We did a BAL. The patient tolerated the procedure well. There were no immediate complications. The bronchoscope was withdrawn. The patient will be recovered. I did speak to the patient's . I gave him just a brief report of what happened during the procedure. The patient will follow up with me in the office. MMODL / IJN: [id number] /
[2022-03-25 23:16] LABS: Appearance,BF Hazy
== END 2022-03-25 14:10 | disposition home or self-care (01) ==
LOC: ORWHC2ENDO 12:34
PROVIDERS: ATTEND Internal Medicine Critical Care Medicine
DX: R49.0 Dysphonia (principal)
CPT/HCPCS: 31624; 81025; 87798 ×3; 87496; 87498; 87529; 88108; 88305; 89050; 87252; 87502; 87634; 87070; 87205; 87116; 87102; 87206; J2250; J3010; J2704

== ENCOUNTER → 2022-05-08 | Outpatient (CLI) | payer OTHER ==
[2022-05-08 18:30] LABS: Basophils # (A) 0.04 X 10*3/uL (0.00-0.10); Basophils % (A) 0.6 %; Eosinophils # (A) 0.05 X 10*3/uL (0.04-0.35); Eosinophils % (A) 0.7 %; HCT 35.8 % (37.2-46.3); HGB 10.9 g/dL (12.0-15.0); Immature Grans, Automated 0.3 %; Lymphocytes # (A) 1.65 X 10*3/uL (0.90-5.00); Lymphocytes % (A) 23.4 %; MCHC 30.4 g/dL (32.0-37.0); MCV 85.4 fL (80.0-97.0); Mean Platelet Volume 9.2 fL (9.5-12.2); Monocytes % (A) 8.5 %; NRBC Per 100 WBC 0 /100 WBCS (0.0-0.0); Neutrophils # (A) 4.69 X 10*3/uL (1.80-7.70); Neutrophils % (A) 66.5 %; Platelet Count 133 X 10*3/uL (140-440); RBC 4.19 X 10*6/uL (4.10-5.20); RDW 17.9 % (11.5-14.5); WBC 7.05 X 10*3/uL (4.50-10.00)
== END | disposition home or self-care (01) ==
LOC: LABPAT 13:07
PROVIDERS: ATTEND Obstetrics & Gynecology Obstetrics
DX: Z01.812 Encounter for preprocedural laboratory examination (principal); N92.0 Excessive and frequent menstruation with regular cycle
CPT/HCPCS: 85025

== ENCOUNTER 2022-05-11 06:31 | Day surgery (SDC) | payer OTHER ==
[2022-05-08 12:05] VITALS: BMI 26.7
[~2022-05-11 06:31] MED LIST changes: -ALBUTEROL NEB (CONC) 2.5 MG/0.5 ML INHALATION ONE; -ATROPINE SULFATE 0.4 MG/ML 1 ML VIAL IM ONE; +DEXAMETHASONE SOD PHOSPHATE 4 MG/ML 1 ML VIAL IV ONE; +HYDROmorphone 0.5 MG/0.5 ML SYRINGE IVP PRN; -LIDOCAINE 2% (PF) 20 MG/ML 5 ML VIAL INHALATION ONE; -LIDOCAINE VISCOUS 300 MG/15 ML CUP MUCOUS MEM ONE; +METOCLOPRAMIDE 5 MG/ML 2 ML VIAL IVP PRN; +ONDANSETRON 4 MG/2 ML VIAL IVP ONE; +Pre Op ABX Message 1 EACH MISC MISCELLANE ONE; +SCOPOLAMINE 1 MG/72 HR PATCH TRANSDERM ONE
[2022-05-11] MEDS ORDERED: PROPOFOL 10 MG/ML 20 ML VIAL IV ONE (07:30)
[2022-05-11] MEDS ORDERED: LIDOCAINE 2% INJ 20 MG/ML (2 ML VIAL) ONE (07:30)
[2022-05-11] MEDS ORDERED: fentaNYL (PF) 50 MCG/ML 2 ML AMP ONE (07:30)
[2022-05-11] MEDS ORDERED: MIDAZOLAM 2 MG/2 ML VIAL ONE (07:30)
[2022-05-11] MEDS ORDERED: KETOROLAC 15 MG/ML 1 ML VIAL ONE (07:30)
--- NOTE | 2022-05-11 08:14 | P.OP ---
Date of Procedure: 05/11/22 Preoperative Diagnosis: Heavy menstrual bleeding Postoperative Diagnosis: Same Procedure(s) Performed: Hysteroscopy, dilation and curettage, endometrial ablation with NovaSure Anesthesia: MAC Surgeon: Marcie Solorzano Estimated Blood Loss (ml): 5 IV fluids (ml): 300 Urine output (ml): 50 Pathology: other (Endometrial curettings) Condition: stable Disposition: PACU Indications for Procedure: Heavy menstrual bleeding Operative Findings: Normal endometrial cavity was appreciated Description of Procedure: Patient is taken back to the operative suite where general anesthesia was obtained without difficulty by the anesthesia department. She is prepped and draped in the normal sterile fashion in the dorsal lithotomy position. The red rubber catheter is used to drain the bladder clear yellow urine. Weighted speculum was placed in the posterior vaginal vault the anterior lip of the cervix was visualized and grasped with a single-tooth tenaculum. Endocervical canal was then serially dilated. The uterine cavity was sounded to 8 cm in length, when cervix is subtracted a total of 470 m. The NovaSure device was opened and set the appropriate measurements for this patient's cavity. 4 cm length, 2.5 cm in width. The cycle was allowed to complete after cavity assessment was passed. Power of 55 for a total time of 66 seconds. After the cycle was complete the NovaSure was removed without difficulty. It is noted to be intact. The single-tooth tenaculum was taken off of the anterior lip of the cervix, hemostasis appreciated. All counts were noted to be correct 2 at the end of the procedure. Patient tolerated procedure well and is taken to the recovery room awake in stable condition.
--- NOTE | 2022-05-11 08:16 | P.HPOB ---
History of Present Illness H&P Date: 05/11/22 Chief Complaint: Heavy menstrual bleeding This is a 52-year-old 3 para 2012 non patient that presents with complaints of heavy periods. Patient states that menstrual cycles have been getting worse over the last few months. Her periods are typically monthly with a length in length and cycle of bleeding. Her menstrual cycles noted to be very heavy with clots. She notes heavy bleeding for approximately 3 days of the menstrual cycle. Patient has had a CBC revealing no signs of anemia, ultrasound was performed with a normal sized uterus. Her past medical history significant for factor V Leiden for which she is on Xarelto Review of Systems Constitutional: Denies chills, Denies fatigue, Denies fever Ears, nose, mouth and throat: Denies headache Cardiovascular: Denies leg edema Respiratory: Denies dyspnea Gastrointestinal: Denies nausea, Denies vomiting Genitourinary: Denies Past Medical History Past Medical History: Blood Disorder, COPD, CVA/TIA, Hypertension Additional Past Medical History / Comment(s): heavy menses,factor 5 blood disorder, hx of 2 cva's (last age 36), weakness left side., mitral valve prolapse, heart palpitations., back and neck pain. History of Any Multi-Drug Resistant Organisms: None Reported Past Surgical History: Section, Tubal Ligation Additional Past Surgical History / Comment(s): colonoscopy Past Anesthesia/Blood Transfusion Reactions: Previous Problems w/ Anesthesia, Postoperative Nausea & Vomiting (PONV) Additional Past Anesthesia/Blood Transfusion Reaction / Comment(s): Pt has a long period of time coming out of it and "freaks" out. Smoking Status: Current every day smoker - Past Family History Mother Family Medical History: Cancer Additional Family Medical History / Comment(s): rectal Sister(s) Family Medical History: Cancer Additional Family Medical History / Comment(s): breast Medications and Allergies Home Medications Medication Instructions Recorded Confirmed Type Metoprolol Succinate (ER) [Toprol 50 mg PO HS 05/26/15 05/11/22 History XL] Montelukast Sodium [Singulair] 10 mg PO QAM 09/30/18 05/11/22 History Rivaroxaban [Xarelto] 20 mg PO W/SUPPER 09/30/18 05/11/22 History Gabapentin [Neurontin] 300 mg PO TID 11/07/19 05/11/22 History traMADol HCL 50 mg PO QID PRN 11/07/19 05/11/22 History Albuterol Sulfate [Proair Hfa] 2 puff INHALATION RT-Q6H PRN 08/11/21 05/11/22 History Atorvastatin [Lipitor] 40 mg PO DAILY 08/11/21 05/11/22 History FLUoxetine HCL 80 mg PO QAM 08/11/21 05/11/22 History Omeprazole 20 mg PO BID 08/11/21 05/11/22 History Budesonide-Formot 160-4.5 Mcg 2 puff INHALATION RT-BID 09/13/21 05/11/22 History [Symbicort 160-4.5 Mcg Inhaler] Topiramate [Topamax] 50 mg PO BID 09/13/21 05/11/22 History buPROPion HCL [Wellbutrin XL] 300 mg PO QAM 09/13/21 05/11/22 History Ondansetron [Zofran] 4 mg PO Q8HR PRN 10/08/21 05/11/22 History Butalb/APAP/Caff 50-325-40Mg 1 tab PO Q4H PRN 03/24/22 05/11/22 History [Fioricet 50-325-40] Allergies Allergy/AdvReac Type Severity Reaction Status Date / Time hydrocodone AdvReac sleeps for Verified 05/11/22 06:51 long time, "can't talk after for days" Exam Osteopathic Statement: *. No significant issues noted on an osteopathic structural exam other than those noted in the History and Physical/Consult. Vital Signs Temp Pulse Resp BP Pulse Ox 05/11/22 06:56 97.3 F L 65 17 122/73 97 Intake and Output 05/10/22 05/11/22 05/11/22 22:59 06:59 14:59 Intake Total 100 Balance 100 Intake: IV 100 Other: Weight 68 kg Targeted physical exam is performed in this date in general she is a well- nourished well-developed female in no acute distress, breathing is noted to nonlabored, heart has regular rate and rhythm, abdomen is soft and nontender. On genitourinary exam the external genitalia is appreciated to be normal, the vaginal mucosa is noted to be pink and well rugated the cervix is without lesio n. The uterus is noted to be normal size no adnexal masses are appreciated. Assessment and Plan (1) Heavy menstrual bleeding Current Visit: Yes Status: Acute Code(s): N92.0 - EXCESSIVE AND FREQUENT MENSTRUATION WITH REGULAR CYCLE SNOMED Code(s): 423363789 (2) Factor V Leiden Current Visit: Yes Status: Acute Code(s): D68.51 - ACTIVATED PROTEIN C RESISTANCE SNOMED Code(s): 985648148 Plan: 52-year-old female that presents for hysteroscopy, dilation and curettage with endometrial ablation. Patient is known history of factor V and was on serosal. 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 Patient is counseled on procedure, questions are answered. Patient states understanding and will pro ceed.
[2022-05-11 08:18] VITALS: TEMP 97.5
[2022-05-11 09:10] VITALS: RESP 16
[2022-05-11 09:37] VITALS: BP 131/85; PULSE 58
== END 2022-05-11 10:03 | disposition home or self-care (01) ==
LOC: OR 06:31
PROVIDERS: ATTEND Obstetrics & Gynecology Obstetrics
DX: N92.0 Excessive and frequent menstruation with regular cycle (principal); D68.51 Activated protein C resistance; J44.9 Chronic obstructive pulmonary disease, unspecified; I10 Essential (primary) hypertension; I34.1 Nonrheumatic mitral (valve) prolapse; M54.2 Cervicalgia; M54.9 Dorsalgia, unspecified; R53.1 Weakness; F17.210 Nicotine dependence, cigarettes, uncomplicated; F41.9 Anxiety disorder, unspecified; F32.A Depression, unspecified; Z86.73 Personal history of transient ischemic attack (TIA), and cerebral infarction without residual deficits; Z79.01 Long term (current) use of anticoagulants; Z79.899 Other long term (current) drug therapy; Z88.5 Allergy status to narcotic agent; Z98.891 History of uterine scar from previous surgery; Z98.51 Tubal ligation status; Z80.0 Family history of malignant neoplasm of digestive organs; Z80.3 Family history of malignant neoplasm of breast
CPT/HCPCS: 81025; 88305; 58563; J2250; J1100; J2405; J3010; J1885; J2704; J1170; J2001

== ENCOUNTER → 2024-01-19 | Outpatient (CLI) | payer OTHER ==
--- NOTE | 2024-01-19 13:58 | MM ---
Reason for Exam: Clinical finding. Last mammogram was performed 2 year(s) and 3 month(s) ago. Patient History: Menarche at age 15. First Full-Term at age 20. Sister had breast cancer, age 48. Risk Values: Caridad 5 year model risk: 1.8%. NCI Lifetime model risk: 14.3%. Tissue Density: The breasts are extremely dense, which lowers the sensitivity of mammography. Findings: Analyzed By CAD. The pattern is symmetrical. Multiple benign-appearing punctate round calcifications are present bilaterally. Findings appear stable in comparison No suspicious groups of microcalcifications, spiculated or lobular masses, architectural distortion or other secondary signs of malignancy are mammographically apparent. At the 10:00 right breast position at the area of the patient's pain, no discrete mammographic abnormality is evident. Ultrasound is recommended for additional evaluation. Overall Assessment: Incomplete: need additional imaging evaluation, BI-RAD 0 Management: Diagnostic Breast Ultrasound of the right breast. A negative mammogram report should not preclude additional follow up of suspicious palpable abnormalities. Patient should continue monthly self breast exam. A clinical breast exam by your physician is recommended on an annual basis and results should be correlated with mammographic findings. Electronically signed and approved by: Florin Castillo D.O. Radiologis
--- NOTE | 2024-01-19 14:38 | USB ---
Reason for Exam: Clinical finding. Patient History: Menarche at age 15. First Full-Term at age 20. Sister had breast cancer, age 48. Risk Values: Caridad 5 year model risk: 1.8%. NCI Lifetime model risk: 14.3%. Technique: Method: Targeted. Prior Study Comparison: 08/17/2018 Bilateral Diagnostic Mammogram, [facility]. 12/08/2018 Right Diagnostic Mammogram, [facility]. 09/30/2021 Bilateral Diagnostic Mammogram, [facility]. Findings: The upper outer quadrant of the right breast, the axilla of the right breast and the retroareolar of the right breast were scanned. At the location of the patient's pain there is a septated cyst or 2 adjacent cysts. There is good through transmission. No additional findings evident to account for patient's pain. Overall Assessment: Probably benign, BI-RAD 3 Management: Diagnostic Mammogram of the right breast in 6 months. Diagnostic Breast Ultrasound of the right breast in 6 months. A clinical breast exam by your physician is recommended on an annual basis and results should be correlated with mammographic findings. This exam should not preclude additional follow-up of suspicious palpable abnormalities. Results were given to the patient verbally at the time of exam. Electronically signed and approved by: Florin Castillo D.O. Radiologis
--- NOTE | 2024-01-19 21:18 | US ---
EXAMINATION TYPE: US kidneys/renal and bladder DATE OF EXAM: 01/19/2024 COMPARISON: NONE CLINICAL INDICATION: Female, 53 years old with history of R10.9 FLANK PAIN; uti and flank pain EXAM MEASUREMENTS: Right Kidney: 11.0x5.2x4.9 cm Left Kidney: 10.9x5.0x4.5 cm Right Kidney: No hydronephrosis or masses seen Left Kidney: No hydronephrosis or masses seen Bladder: wnl Bilateral Jets seen: Yes IMPRESSION: No acute renal ultrasound abnormality
== END | disposition home or self-care (01) ==
LOC: RADMAMWWP 13:21
PROVIDERS: ATTEND Internal Medicine
DX: R92.343 Mammographic extreme density, bilateral breasts (principal); N64.4 Mastodynia; N39.0 Urinary tract infection, site not specified; R92.1 Mammographic calcification found on diagnostic imaging of breast; Z80.3 Family history of malignant neoplasm of breast
CPT/HCPCS: 77066; 76770; 76642; G0279; 77062

== ENCOUNTER → 2024-06-28 | Outpatient (CLI) | payer OTHER ==
[2024-06-28 15:30] LABS: Basophils # (A) 0.04 X 10*3/uL (0.00-0.10); Basophils % (A) 0.6 %; Eosinophils # (A) 0.12 X 10*3/uL (0.04-0.35); Eosinophils % (A) 1.7 %; HCT 45.3 % (37.2-46.3); Lymphocytes # (A) 1.76 X 10*3/uL (0.90-5.00); Lymphocytes % (A) 25.1 %; MCH 32.8 pg (27.0-32.0); MCHC 33.1 g/dL (32.0-37.0); MCV 98.9 FL (80.0-97.0); Mean Platelet Volume 10.5 FL (9.5-12.2); Monocytes # (A) 0.66 X 10*3/uL (0.20-1.00); Monocytes % (A) 9.4 %; NRBC Per 100 WBC 0 X 10*3/uL (0.00-0.01); Neutrophils # (A) 4.43 X 10*3/uL (1.80-7.70); Neutrophils % (A) 63.1 %; Platelet Count 116 X 10*3/uL (140-440); RBC 4.58 X 10*6/uL (4.10-5.20); RDW 13.8 % (11.5-14.5); WBC 7.02 X 10*3/uL (4.50-10.00)
[2024-06-28 15:42] LABS: BUN/Creat Ratio 23.83 Ratio (12.00-20.00); Blood Urea Nitrogen 14.3 mg/dL (9.0-27.0); Calcium 9.9 mg/dL (8.7-10.3); Carbon Dioxide 22.8 mmol/L (21.6-31.8); Chloride 103 mmol/L (96-109); Glucose 104 mg/dL (70-110); Potassium 4.5 mmol/L (3.5-5.5); Sodium 137 mmol/L (135-145)
== END | disposition home or self-care (01) ==
LOC: LABPAT 10:34
PROVIDERS: ATTEND Urology
DX: Z01.812 Encounter for preprocedural laboratory examination (principal); N39.46 Mixed incontinence
CPT/HCPCS: 36415; 80048; 85025

== ENCOUNTER 2024-06-29 06:20 | Day surgery (SDC) | payer OTHER ==
[2024-05-08 13:36] VITALS: BMI 27.4
--- NOTE | 2024-06-28 20:14 | P.GSHP ---
History of Present Illness H&P Date: 06/28/24 Chief Complaint: Mixed urinary incontinence The patient is a 54-year-old white female with a 2-year history of progressive mixed urinary incontinence, which requires up to 10 many pads daily. The stress component is predominant, but she also reports urinary urge incontinence and incontinence without awareness. Examination reveals evidence of urethral hypermobility with stress incontinence demonstrated. A Norm test is positive. There are no uninhibited contractions. Findings are consistent with type II stress urinary incontinence. She was offered the options of observation, Bulkamid, autologous fascial sling, and TOT sling. She has chosen to undergo the latter. 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 Heart palpitations. Back and neck pain, migraines. History of Any Multi-Drug Resistant Organisms: None Reported Past Surgical History: Section, Tubal Ligation Additional Past Surgical History / Comment(s): Colonoscopy. Past Anesthesia/Blood Transfusion Reactions: Previous Problems w/ Anesthesia, Motion Sickness, Postoperative Nausea & Vomiting (PONV) Additional Past Anesthesia/Blood Transfusion Reaction / Comment(s): Takes a long time to come out and "freaks" out. Smoking Status: Current every day smoker - Past Family History Mother Family Medical History: Cancer Additional Family Medical History / Comment(s): Rectal cancer. Sister(s) Family Medical History: Cancer Additional Family Medical History / Comment(s): Breast cancer. Medications and Allergies Home Medications Medication Instructions Recorded Confirmed Type Metoprolol Succinate (ER) [Toprol 50 mg PO HS 05/26/15 06/23/24 History XL] Montelukast Sodium [Singulair] 10 mg PO QAM 09/30/18 06/23/24 History Rivaroxaban [Xarelto] 20 mg PO HS 09/30/18 06/23/24 History Gabapentin [Neurontin] 300 mg PO TID 11/07/19 06/23/24 History traMADol HCL 50 mg PO QID PRN 11/07/19 06/23/24 History Albuterol Sulfate [Proair Hfa] 2 puff INHALATION RT-Q6H PRN 08/11/21 06/23/24 History Atorvastatin [Lipitor] 40 mg PO DAILY 08/11/21 06/23/24 History FLUoxetine HCL 80 mg PO QAM 08/11/21 06/23/24 History Omeprazole 20 mg PO QAM 08/11/21 06/23/24 History Budesonide-Formot 160-4.5 Mcg 2 puff INHALATION RT-BID 09/13/21 06/23/24 History [Symbicort 160-4.5 Mcg Inhaler] Topiramate [Topamax] 50 mg PO BID 09/13/21 06/23/24 History buPROPion HCL [Wellbutrin XL] 300 mg PO QAM 09/13/21 06/23/24 History Ondansetron [Zofran] 4 mg PO Q8HR PRN 10/08/21 06/23/24 History Butalb/APAP/Caff 50-325-40Mg 1 tab PO Q4H PRN 03/24/22 06/23/24 History [Fioricet 50-325-40] Loratadine 10 mg PO QAM 05/08/24 06/23/24 History Allergies Allergy/AdvReac Type Severity Reaction Status Date / Time hydrocodone AdvReac sleeps for Verified 06/23/24 11:35 long time, "can't talk after for days" Surgical - Exam - General well developed, well nourished, no distress - Respiratory normal respiratory effort - Abdomen Abdomen: soft, non tender, no guarding, no rigid, no rebound - Genitourinary Normal vulva, normal urethral meatus. Mild to moderate urethral hypermobility is noted. Stress incontinence is demonstrated. A Norm test is positive. There are no adnexal masses. - Psychiatric oriented to time, oriented to person, oriented to place, speech is normal, memory intact Assessment and Plan (1) Mixed incontinence Status: Acute Code(s): N39.46 - MIXED INCONTINENCE SNOMED Code(s): 49686416 Plan: Obtryx subfascial sling. The procedure has been reviewed in detail with the pat ient. She has been made aware of potential risks, which include anesthesia, bleeding, infection, pain, postoperative urinary retention, graft erosion, lower urinary tract injury, and persistent incontinence.
[2024-06-29] MEDS ORDERED: droPERidol 5 MG/2 ML VIAL IVP PRN (06:40)
[2024-06-29] MEDS ORDERED: LIDOCAINE 1% (10MG/ML) FOR IV START INTRADERMA PRN (06:40)
[2024-06-29] MEDS ORDERED: fentaNYL (PF) 50 MCG/ML 2 ML AMP IV PRN (07:00)
[2024-06-29] MEDS: LACTATED RINGERS 1,000 ML IV SCH ×2 (07:01→13:30)
[2024-06-29] MEDS: ONDANSETRON 4 MG/2 ML VIAL IVP ONE (07:02)
[2024-06-29] MEDS: DEXAMETHASONE SOD PHOSPHATE 4 MG/ML 1 ML VIAL IV ONE (07:02)
[2024-06-29] MEDS: IV FLUID CONTINUATION 1,000 ML IV ONE (07:07)
[2024-06-29] MEDS ORDERED: fentaNYL (PF) 50 MCG/ML 2 ML AMP ONE (07:25)
[2024-06-29] MEDS ORDERED: GLYCOPYRROLATE 0.2 MG/ML 2 ML VIAL ONE (07:25)
[2024-06-29] MEDS ORDERED: PROPOFOL 10 MG/ML 20 ML VIAL IV ONE (07:25)
[2024-06-29] MEDS ORDERED: KETOROLAC 15 MG/ML 1 ML VIAL ONE (07:25)
[2024-06-29] MEDS ORDERED: LIDOCAINE 1% INJ 10MG/ML (20 ML MDV) ONE (07:25)
[2024-06-29] MEDS: GENTAMICIN 100 MG in SODIUM CHLORIDE 0.9% 100 ML IVPB PRN (07:55)
[2024-06-29] MEDS: LIDOCAINE 1%-EPI 1:100,000 20 ML VIAL SQ ONE (08:02)
[2024-06-29] MEDS: BACITRACIN ZINC 500 UNIT/GM OINT 28.4 GM TUBE TOPICAL ONE (08:25)
--- NOTE | 2024-06-29 08:44 | P.OP ---
Date of Procedure: 06/29/24 Preoperative Diagnosis: Mixed urinary incontinence Postoperative Diagnosis: Same Procedure(s) Performed: Obtryx mid urethral sling Anesthesia: BRISEIDA Surgeon: Aleksey Hercules Estimated Blood Loss (ml): 50 IV fluids (ml): 600 Pathology: none sent Condition: stable Disposition: PACU Indications for Procedure: The patient is a 54-year-old white female with a 2-year history of progressive mixed urinary incontinence, which requires up to 10 many pads daily. The stress component is predominant, but she also reports urinary urge incontinence and incontinence without awareness. Examination reveals evidence of urethral hypermobility with stress incontinence demonstrated. A Norm test is positive. There are no uninhibited contractions. Findings are consistent with type II stress urinary incontinence. She was offered the options of observation, Bulkamid, autologous fascial sling, and TOT sling. She has chosen to undergo the latter. Operative Findings: Successful sling placement Description of Procedure: The patient was taken to the operating room and placed in the dorsal lithotomy position, with her legs supported in Kane stirrups. The perineum, lower abdomen, and vagina were prepped and draped sterilely. A 16-Canadian Schumacher catheter was placed. 1.0% Lidocaine with epinephrine was injected submucosally within the anterior vaginal wall, over the urethra. The scalpel was then used to make an anterior midline vaginal incision over the urethra. Metzenbaum scissors were used to dissect laterally within the submucosal plane, to the inferior pubic ramus. The scalpel was used to make bilateral groin incisions at the level of the clitoris. Subcutaneous tissues were spread with a hemostat. Each of the helical needles were passed through the respective groin incision, and turned such that the needle tip wrapped around the pubis. The needle tips were guided digitally into the vaginal incision. The Obtryx graft, which had been previously soaked in antibiotic solution, was secured to the needle tips in the standard fashion. The needles were then withdrawn, and the position of the graft was adjusted such that it overlie the mid urethra, as desired. Cystoscopy was performed. The 30 lens was used to introduce the 19-Canadian Storz cystoscopic sheath through the urethra and into the bladder under direct vision. The urethra and bladder were unremarkable. There was no evidence of perforation. Both ureteral orifices were of normal anatomic location and configuration, and clear urine effluxed from both. No tumors or foreign bodies were seen. The cystoscope was removed, and the Schumacher catheter was replaced into the bladder. With a hemostat placed between the graft and the urethra to prevent tension of the graft over the urethra, the plastic sheath was removed from the ends of the graft. The ends of the graft were cut beneath the skin incisions, and these incisions were closed using 4-0 Vicryl suture in a subcuticular fashion. Hemostasis within the vaginal incision was adequate, and the vaginal incision was closed using 2-0 Vicryl suture in a running fashion. Vaginal packing was placed. All sponge and needle counts were correct. The patient tolerated the procedure well was taken to the recovery room in stable condition.
[2024-06-29] MEDS: DEXTROSE 5%-0.45% NACL 1,000 ML IV SCH (11:56)
[2024-06-29] MEDS: HYDROmorphone 0.5 MG/0.5 ML SYRINGE IVP PRN (11:58)
[2024-06-29] MEDS: KETOROLAC 15 MG/ML 1 ML VIAL IVP PRN (15:26)
[2024-06-29] MEDS: GENTAMICIN 100 MG in SODIUM CHLORIDE 0.9% 100 ML IVPB ONE (19:28)
[2024-06-30] MEDS: ACETAMINOPHEN TAB 325 MG TAB PO PRN (00:03)
[2024-06-30 08:17] VITALS: BP 123/78; PULSE 79; RESP 16; TEMP 97.7
--- NOTE | 2024-06-30 21:54 | P.DS ---
Providers Attending physician: Aleksey Hercules Primary care physician: [facility] Course: This is a 54-year-old female that underwent a mid urethral sling by Dr. Hercules on June 29. Please see op note dated June 29 for surgery details. Patient was admitted to the hospital postoperatively. Schumacher catheter and vaginal packing was removed on postop day #1, patient was able to void postoperatively. She was discharged home on postop day #1, at time of discharge she was tolerating a diet, ambulating, and pain was controlled Patient Condition at Discharge: Stable Plan - Discharge Summary Discharge Rx Participant: Yes New Discharge Prescriptions: New Cephalexin [Keflex] 500 mg PO Q8HR #15 cap Ketorolac [Toradol] 10 mg PO Q6HR PRN #15 tab PRN Reason: Pain Acetaminophen-Codeine 300-30mg [Tylenol w/codeine #3] 1 - 2 tab PO Q6H PRN #10 tablet PRN Reason: Moderate To Severe Pain (4-10) No Action Metoprolol Succinate (ER) [Toprol XL] 50 mg PO HS Montelukast Sodium [Singulair] 10 mg PO QAM Rivaroxaban [Xarelto] 20 mg PO HS traMADol HCL 50 mg PO QID PRN PRN Reason: Pain Gabapentin [Neurontin] 300 mg PO TID Albuterol Sulfate [Proair Hfa] 2 puff INHALATION RT-Q6H PRN PRN Reason: Shortness Of Breath FLUoxetine HCL 80 mg PO QAM Budesonide-Formot 160-4.5 Mcg [Symbicort 160-4.5 Mcg Inhaler] 2 puff INHALAT ION RT-BID Butalb/APAP/Caff 50-325-40Mg [Fioricet 50-325-40] 1 tab PO Q4H PRN PRN Reason: Migraine Headache Atorvastatin [Lipitor] 40 mg PO DAILY Omeprazole 20 mg PO QAM buPROPion HCL [Wellbutrin XL] 300 mg PO QAM Topiramate [Topamax] 50 mg PO BID Ondansetron [Zofran] 4 mg PO Q8HR PRN PRN Reason: Nausea Loratadine 10 mg PO QAM Discharge Medication List Metoprolol Succinate (ER) [Toprol XL] 50 mg PO HS 05/26/15 [History] Montelukast Sodium [Singulair] 10 mg PO QAM 09/30/18 [History] Rivaroxaban [Xarelto] 20 mg PO HS 09/30/18 [History] Gabapentin [Neurontin] 300 mg PO TID 11/07/19 [History] traMADol HCL 50 mg PO QID PRN 11/07/19 [History] Albuterol Sulfate [Proair Hfa] 2 puff INHALATION RT-Q6H PRN 08/11/21 [History] Atorvastatin [Lipitor] 40 mg PO DAILY 08/11/21 [History] FLUoxetine HCL 80 mg PO QAM 08/11/21 [History] Omeprazole 20 mg PO QAM 08/11/21 [History] Budesonide-Formot 160-4.5 Mcg [Symbicort 160-4.5 Mcg Inhaler] 2 puff INHALATION RT-BID 09/13/21 [History] Topiramate [Topamax] 50 mg PO BID 09/13/21 [History] buPROPion HCL [Wellbutrin XL] 300 mg PO QAM 09/13/21 [History] Ondansetron [Zofran] 4 mg PO Q8HR PRN 10/08/21 [History] Butalb/APAP/Caff 50-325-40Mg [Fioricet 50-325-40] 1 tab PO Q4H PRN 03/24/22 [History] Loratadine 10 mg PO QAM 05/08/24 [History] Acetaminophen-Codeine 300-30mg [Tylenol w/codeine #3] 1 - 2 tab PO Q6H PRN #10 tablet 06/30/24 [Rx] Cephalexin [Keflex] 500 mg PO Q8HR #15 cap 06/30/24 [Rx] Ketorolac [Toradol] 10 mg PO Q6HR PRN #15 tab 06/30/24 [Rx] Follow up Appointment(s)/Referral(s): Aleksey Hercules MD [STAFF PHYSICIAN] - 1 Week Patient Instructions/Handouts: Bladder Sling for Women (DC) Discharge Disposition: HOME SELF-CARE
== END 2024-06-30 12:45 | disposition home or self-care (01) ==
LOC: OR 06:20 → 4FBP 08:32 → OR 06-30 12:45
PROVIDERS: ATTEND Urology
DX: N39.46 Mixed incontinence (principal); I10 Essential (primary) hypertension; I34.1 Nonrheumatic mitral (valve) prolapse; J44.9 Chronic obstructive pulmonary disease, unspecified; K21.9 Gastro-esophageal reflux disease without esophagitis; E78.5 Hyperlipidemia, unspecified; F32.A Depression, unspecified; F17.200 Nicotine dependence, unspecified, uncomplicated; Z79.01 Long term (current) use of anticoagulants; Z79.51 Long term (current) use of inhaled steroids; Z79.899 Other long term (current) drug therapy; Z86.73 Personal history of transient ischemic attack (TIA), and cerebral infarction without residual deficits; Z98.51 Tubal ligation status; Z88.5 Allergy status to narcotic agent; Z80.0 Family history of malignant neoplasm of digestive organs

== ENCOUNTER → 2024-07-07 | Outpatient (CLI) | payer OTHER ==
--- NOTE | 2024-07-07 14:26 | USB ---
Reason for Exam: Follow-up at short interval from prior study. Patient History: Menarche at age 15. First Full-Term at age 20. Sister had breast cancer, age 48. Risk Values: Caridad 5 year model risk: 1.9%. NCI Lifetime model risk: 14.0%. Technique: Method: Targeted. Prior Study Comparison: 12/08/2018 Right Diagnostic Mammogram, [facility]. 09/30/2021 Bilateral Diagnostic Mammogram, [facility]. 01/19/2024 Bilateral MG 3D diag mammo w/cad MAX, [facility]. Findings: The upper outer quadrant of the right breast, the axilla of the right breast and the retroareolar of the right breast were scanned. Septated cyst at the right 11:00 position 5 cm from the nipple is unchanged relative to the prior study measures 6 x 4 mm. Continued six-month follow-up is advised. No new lesions or solid lesions detected. Overall Assessment: Probably benign, BI-RAD 3 Management: Diagnostic Breast Ultrasound of the right breast in 6 months. A clinical breast exam by your physician is recommended on an annual basis and results should be correlated with mammographic findings. This exam should not preclude additional follow-up of suspicious palpable abnormalities. Results were given to the patient verbally at the time of exam. Electronically signed and approved by: Braulio Colby M.D. Radiologis
== END | disposition home or self-care (01) ==
LOC: RADUSWWP 14:00
PROVIDERS: ATTEND Internal Medicine

== ENCOUNTER → 2025-04-04 | Outpatient (CLI) | payer OTHER ==
--- NOTE | 2025-04-04 12:31 | XR ---
EXAMINATION TYPE: XR chest 2V DATE OF EXAM: 04/04/2025 12:25 PM COMPARISON: Chest radiographs from 04/04/2025. CLINICAL INDICATION: Female, 55 years old with history of S29.9XXA; H TECHNIQUE: XR chest 2V Frontal and lateral views of the chest. FINDINGS: Lungs/Pleura: There is no evidence of pleural effusion, focal consolidation, or pneumothorax. Pulmonary vascularity: Unremarkable. Heart/mediastinum: Cardiomediastinal silhouette is unremarkable. Musculoskeletal: No acute osseous pathology. Other findings: None IMPRESSION: 1. No acute cardiopulmonary disease process. 2. COPD changes. [facility], , 04/04/2025 12:28 PM
--- NOTE | 2025-04-04 12:33 | XR ---
EXAMINATION TYPE: XR ribs bilateral DATE OF EXAM: 04/04/2025 12:25 PM COMPARISON: 04/04/2025 CLINICAL INDICATION: Female, 55 years old with history of S29.9XXA; PHH, pain TECHNIQUE: XR ribs bilateral; Frontal and oblique views of the ribs with frontal chest radiograph. FINDINGS: The ribs have a normal appearance. No evidence of fracture. Overall, the lungs are clear. The cardiac silhouette is normal in size. The remaining osseous structures are intact. IMPRESSION: No acute osseous pathology. [facility], , 04/04/2025 12:31 PM
== END | disposition home or self-care (01) ==
LOC: RADXRMAIN 11:48
PROVIDERS: ATTEND Internal Medicine
DX: S29.9XXA Unspecified injury of thorax, initial encounter (principal); J44.9 Chronic obstructive pulmonary disease, unspecified
CPT/HCPCS: 71046; 71110

== ENCOUNTER → 2025-04-04 | Outpatient (CLI) | payer OTHER ==
--- NOTE | 2025-04-04 10:51 | MM ---
Reason for Exam: Follow-up at short interval from prior study. Last mammogram was performed 1 year(s) and 3 month(s) ago. Patient History: Menarche at age 15. First Full-Term at age 20. Sister had breast cancer, age 48. Risk Values: Caridad 5 year model risk: 1.9%. NCI Lifetime model risk: 13.8%. Tissue Density: The breasts are extremely dense, which lowers the sensitivity of mammography. Findings: Analyzed By CAD. There are multiple tiny benign-appearing punctate calcifications scattered throughout the bilateral breasts redemonstrated. No suspicious new group of microcalcifications or concerning mass bilaterally. Overall Assessment: Benign, BI-RAD 2 Management: Screening Mammogram of both breasts in 1 year. Some Advise annual bilateral breast ultrasound surveillance in patients with background dense tissue. Results were given to the patient verbally at the time of exam. Patient should continue monthly self-breast exams. A clinical breast exam by your physician is recommended on an annual basis. This exam should not preclude additional follow-up of suspicious palpable abnormalities. Note on Caridad scores and lifetime risk: 1. A Caridad score greater than 3% is considered moderate risk. If this is the case, consider specialist referral to assess eligibility for a risk reducing agent. 2. If overall lifetime risk for the development of breast cancer is 20% or higher, the patient may qualify for future screening with alternating mammogram and breast MRI. [facility], , 04/04/2025 10:48 AM. Electronically signed and approved by: Juan Moody M.D.
== END | disposition home or self-care (01) ==
LOC: RADMAMWWP 10:18
PROVIDERS: ATTEND Internal Medicine
DX: R92.8 Other abnormal and inconclusive findings on diagnostic imaging of breast (principal); R92.343 Mammographic extreme density, bilateral breasts; Z80.3 Family history of malignant neoplasm of breast
CPT/HCPCS: 77066; G0279; 77062